=== PATIENT | male | born 1980 | race Caucasian/White ===

== ENCOUNTER 2025-03-02 11:24 | Inpatient (IN) | payer MEDICAID ==
[2025-03-02] VITALS (33 sets, daily range): BP systolic 133–159; BP diastolic 68–119; PULSE 77–91; RESP 17–26; TEMP 36.3–36.6; O2SAT 92–98
[~2025-03-02] VITALS: Ht 162.6 cm; Wt 200.9 kg
[2025-03-02] MEDS: NITROGLYCERIN 0.4MG/HR PATCH TOP ONE (12:00)
[2025-03-02] MEDS ORDERED: HYDRALAZINE 20MG/ML VIAL IV ONE (12:00)
[2025-03-02] MEDS ORDERED: CLONIDINE 0.3MG TABLET PO ONE (12:00)
[2025-03-02 12:19] LABS: UREA NITROGEN BLOOD 47 mg/dL (9-23)
[2025-03-02 12:20] LABS: TROPONIN I HIGH SENSITIVITY 53 ng/L (3.0-53)
[2025-03-02 12:33] LABS: CREATININE 6.1 mg/dL (0.6-1.3)
[2025-03-02] MEDS ORDERED: ALBUTEROL (0.5%) 2.5MG/0.5ML NEB HHN ONE (12:45)
[2025-03-02] MEDS ORDERED: SODIUM BICARBONATE 8.4% 50MEQ/50ML SYR IV ONE (12:45)
[2025-03-02] MEDS: SODIUM BICARBONATE 8.4% 50MEQ/50ML SYR IV NR ×2 (13:05→23:42)
[2025-03-02] MEDS: FUROSEMIDE 40MG/4ML VIAL IVP SCH ×3 (13:05→21:15)
[2025-03-02] MEDS: SODIUM CHLORIDE 0.9% 1,000 ML IV ONE (13:06)
[2025-03-02] MEDS: HYDRALAZINE 20MG/ML VIAL IV NR (13:07)
[2025-03-02] MEDS: CLONIDINE 0.1MG TABLET PO NR (13:07)
[2025-03-02] MEDS: ALBUTEROL (0.5%) 2.5MG/0.5ML NEB HHN NR (13:11)
[2025-03-02] MEDS: CALCIUM GLUCONATE 100MG/ML 10ML VIAL IV ONE (13:25)
[2025-03-02] MEDS ORDERED: ROCURONIUM BROMIDE 10MG/ML VIAL 5ML IV ONE (14:20)
[2025-03-02] MEDS ORDERED: ETOMIDATE 2MG/ML 10ML VIAL IV ONE (14:20)
[2025-03-02 15:00] LABS: BASOPHILS % 0.3 % (0.0-2.0); EOSINOPHILS % 0.3 % (0.0-5.0); HEMATOCRIT. 35.5 % (42.0-52.0); HEMOGLOBIN. 10.6 g/dL (14.0-18.0); LYMPHOCYTES % 7.9 % (20.0-50.0); MEAN PLATELET VOLUME 7.2 fl (7.4-10.4); MONOCYTES % 8.0 % (2.0-8.0); NEUTROPHILS % 83.5 % (40.0-76.0); PLATELET 337 x1000/uL (130-400); RED BLOOD CELL COUNT 3.91 mill/uL (4.7-6.1); RED CELL DISTRIBUTION WIDTH 16.4 % (11.6-14.6)
[2025-03-02 15:04] LABS: BG BASE EXCESS -7.7 mmol/L (-2.0-3.0); BG CARBOXYHEMOGLOBIN 0.3 % (0.5-1.5); BG DEOXYHEMOGLOBIN 3.9 % (0.0-5.0); BG FRACTION INSPIRED OXYGEN 100; BG HCO3 ACT 21.6 mmol/L (21.0-28.0); BG METHEMOGLOBIN 0.3 % (0.5-1.5); BG OXYGEN SATURATION 96.1 % (94.0-98.0); BG OXYHEMOGLOBIN 95.5 % (94.0-98.0); BG PCO2 62.9 mmHg (35.0-48.0); BG PH 7.153 (7.350-7.450); BG PO2 104.1 mmHg (83.0-108.0); BG SAMPLE SITE RIGHT BRACHIAL; BG TOTAL HEMOGLOBIN 11.6 g/dL (13.5-17.5); BG TOTAL RESPIRATORY RATE 24 b/min; BG VENT MODE MASK - BIPAP; BG VENT RATE 14.0 set
[2025-03-02] MEDS: ETOMIDATE 2MG/ML 10ML VIAL IV ONE (15:24)
[2025-03-02] MEDS: ROCURONIUM BROMIDE 10MG/ML VIAL 5ML IV ONE (15:25)
[2025-03-02] MEDS ORDERED: HEPARIN 25,000 UNITS PREMIX 250 ML IV SCH (15:45)
[2025-03-02] MEDS: PROPOFOL 10MG/ML 100ML 100 ML IV SCH (15:58)
[2025-03-02] MEDS: ONDANSETRON HCL 4MG/2ML INJ IV ONE (16:52)
[2025-03-02] MEDS: MORPHINE SULFATE 4 MG/ML INJ (FOR IV/IM USE) IV ONE (16:53)
[2025-03-02] MEDS ORDERED: DEXTROSE 50% WATER 50ML SYRINGE IV PRN (17:00)
[2025-03-02 17:05] LABS: UREA NITROGEN BLOOD 51 mg/dL (9-23)
[2025-03-02 17:07] LABS: PHOSPHORUS 7.8 mg/dL (2.5-4.9)
[2025-03-02 17:14] LABS: CLARITY URINE TURBID (CLEAR); COLOR URINE YELLOW (YELLOW); GLUCOSE URINE 1+ (NEGATIVE); KETONES URINE TRACE (NEGATIVE); LEUKOCYTE ESTERASE URINE NEGATIVE (NEGATIVE); NITRITE URINE NEGATIVE (NEGATIVE); OCCULT BLOOD URINE TRACE (NEGATIVE); PH URINE 5.0 (4.5-8.0); PROTEIN URINE 4+ (NEGATIVE); SPECIFIC GRAVITY URINE 1.022 (1.005-1.030); UROBILINOGEN URINE 0.2 E.U./dL (0.2-1.0)
[2025-03-02 17:26] LABS: BACTERIA URINE 1+; SQUAMOUS EPITHELIAL CELL URINE RARE /lpf (RARE/1+); WBC URINE 0-2 /hpf (0-2)
[2025-03-02 17:26] LABS: CREATININE 6.1 mg/dL (0.6-1.3)
[2025-03-02 17:27] LABS: AMORPHOUS SEDIMENT URINE 1+ /lpf
[2025-03-02] MEDS ORDERED: FUROSEMIDE 40MG/4ML VIAL IVP ONE (17:30)
[2025-03-02 17:31] LABS: *AMPHETAMINES SCREEN URINE NEGATIVE (NEGATIVE); *BARBITURATES SCREEN URINE NEGATIVE (NEGATIVE); *BENZODIAZEPINES SCREEN URINE PRESUMPTIVE POSITIVE (NEGATIVE); *COCAINE SCREEN URINE NEGATIVE (NEGATIVE); CANNABINOID URINE SCREEN NEGATIVE (NEGATIVE); ECSTASY MDMA SCREEN URINE NEGATIVE (NEGATIVE); METHADONE URINE SCREEN NEGATIVE (NEGATIVE); OPIATES URINE SCREEN NEGATIVE (NEGATIVE); PHENCYCLIDINE URINE SCREEN NEGATIVE (NEGATIVE)
[2025-03-02] MEDS: SODIUM ZIRCONIUM CYCLOSILICATE 10GM/PACKET NG SCH (17:42)
[2025-03-02] MEDS: METHYLPREDNISOLONE SOD SUCC 125MG/2ML (ACT-O-VIAL) IV SCH (17:42)
[2025-03-02] MEDS: PANTOPRAZOLE SODIUM 40 MG/VIAL IV SCH (17:43)
[2025-03-02] MEDS: BLOOD SUGAR DIAGNOSTIC STRIP TEST SCH (17:43)
[2025-03-02 17:56] LABS: BG BASE EXCESS -6.5 mmol/L (-2.0-3.0); BG CARBOXYHEMOGLOBIN 0.2 % (0.5-1.5); BG DEOXYHEMOGLOBIN 3.7 % (0.0-5.0); BG FRACTION INSPIRED OXYGEN 100; BG HCO3 ACT 19.8 mmol/L (21.0-28.0); BG METHEMOGLOBIN 0.3 % (0.5-1.5); BG OXYGEN SATURATION 96.3 % (94.0-98.0); BG OXYHEMOGLOBIN 95.8 % (94.0-98.0); BG PCO2 42.7 mmHg (35.0-48.0); BG PEEP (cmH2O) 5.0 cmH2O; BG PH 7.284 (7.350-7.450); BG PO2 88.9 mmHg (83.0-108.0); BG SAMPLE SITE LEFT RADIAL; BG TIDAL VOLUME(mL) 500.0 mL; BG TOTAL HEMOGLOBIN 11.5 g/dL (13.5-17.5); BG TOTAL RESPIRATORY RATE 20 b/min; BG VENT MODE VENT - AC; BG VENT RATE 20.0 set
[2025-03-02] MEDS: INSULIN REGULAR (HUMULIN R) 1000UNITS/10ML VIAL IV NR ×2 (17:59→23:43)
[2025-03-02] MEDS: DEXTROSE 50% WATER 50ML SYRINGE IV NR ×2 (18:01→23:43)
[2025-03-02] MEDS: CALCIUM GLUCONATE 100MG/ML 10ML VIAL IV NR (18:02)
[2025-03-02] MEDS: INSULIN LISPRO 100 UNITS/ML SUBCUT SCH (18:03)
[2025-03-02] MEDS: CALCIUM ACETATE 667MG CAPSULE PO SCH (18:05)
[2025-03-02] MEDS ORDERED: HYDRALAZINE 20MG/ML VIAL IV PRN (18:15)
[2025-03-02] MEDS: IPRATROPIUM/ALBUTEROL 0.5-3(2.5)MG/3ML NEB HHN SCH (20:42)
[2025-03-02] MEDS: AZITHROMYCIN 500MG/250ML 250 ML IV SCH (20:44)
[2025-03-02] MEDS: PIPERACILLIN/TAZO 3.375G/50ML 50 ML IV SCH (20:45)
[2025-03-02] MEDS: CLINDAMYCIN 600MG PREMIX 50 ML IV SCH (21:54)
[2025-03-02 22:48] LABS: UREA NITROGEN BLOOD 45 mg/dL (9-23)
[2025-03-02 22:50] LABS: PHOSPHORUS 7.3 mg/dL (2.5-4.9)
[2025-03-02] MEDS: METHYLPREDNISOLONE SOD SUCC 40MG/ML (ACT-O-VIAL) IV SCH (23:05)
[2025-03-02] MEDS: PROPOFOL 10MG/ML 100ML 100 ML IV PRN (23:06)
[2025-03-02 23:10] LABS: CREATININE 6.2 mg/dL (0.6-1.3); TROPONIN I HIGH SENSITIVITY 181 ng/L (3.0-53)
[2025-03-02] MEDS: SODIUM ZIRCONIUM CYCLOSILICATE 10GM/PACKET PO NR (23:42)
[2025-03-03] VITALS (112 sets, daily range): BP systolic 67–151; BP diastolic 51–127; PULSE 65–95; RESP 15–30; TEMP 36.33624–36.8; O2SAT 85–100
[2025-03-03] MEDS: CALCIUM GLUCONATE 1GM PREMIX 50 ML IV NR (00:11)
[2025-03-03] MEDS ORDERED: NOREPINEPHRINE 8MG/250ML PMX 250 ML IV PRN (02:15)
[2025-03-03] MEDS ORDERED: SPIR25TA6 PO (03:31)
[2025-03-03] MEDS ORDERED: EZET10TA81 PO (03:31)
[2025-03-03] MEDS ORDERED: ATOR40TA70 MT (03:31)
[2025-03-03] MEDS ORDERED: SODI650T PO (03:31)
[2025-03-03] MEDS ORDERED: ASPI-1406 PO (03:31)
[2025-03-03] MEDS ORDERED: AMLO5TAB88 PO (03:31)
[2025-03-03] MEDS: FUROSEMIDE 40MG/4ML VIAL IVP SCH (07:02)
[2025-03-03 07:11] LABS: HEMATOCRIT. 33.8 % (42.0-52.0); HEMOGLOBIN. 10.5 g/dL (14.0-18.0); MEAN PLATELET VOLUME 7.6 fl (7.4-10.4); PLATELET 321 x1000/uL (130-400); RED BLOOD CELL COUNT 3.88 mill/uL (4.7-6.1); RED CELL DISTRIBUTION WIDTH 16.2 % (11.6-14.6); TRIGLYCERIDE 155.0 mg/dL (0-150); UREA NITROGEN BLOOD 64.0 mg/dL (9-23)
[2025-03-03 07:12] LABS: LDL CHOLESTEROL 48.0 mg/dL (5-100)
[2025-03-03 07:14] LABS: T4 FREE 0.94 ng/dL (0.89-1.76)
[2025-03-03 07:32] LABS: CREATININE 6.4 mg/dL (0.6-1.3)
[2025-03-03] MEDS ORDERED: ALBUTEROL (0.083%) 2.5MG/3ML NEB HHN NR (07:45)
[2025-03-03 07:51] LABS: TROPONIN I HIGH SENSITIVITY 247 ng/L (3.0-53)
[2025-03-03] MEDS ORDERED: DEXTROSE 50% WATER 50ML SYRINGE IV PRN (08:00)
[2025-03-03] MEDS: IPRATROPIUM/ALBUTEROL 0.5-3(2.5)MG/3ML NEB HHN PRN (08:18)
[2025-03-03] MEDS: INSULIN REGULAR (HUMULIN R) 1000UNITS/10ML VIAL IV NR (08:20)
[2025-03-03] MEDS: DEXTROSE 50% WATER 50ML SYRINGE IV NR (08:20)
[2025-03-03] MEDS: FUROSEMIDE 20MG/2ML VIAL IVP ONE (08:26)
[2025-03-03] MEDS: CALCIUM GLUCONATE 100MG/ML 10ML VIAL IV NR (08:38)
[2025-03-03] MEDS: INSULIN LISPRO 100 UNITS/ML SUBCUT SCH (09:00)
[2025-03-03 10:05] LABS: HEMATOCRIT. 33.7 % (42.0-52.0); HEMOGLOBIN. 10.3 g/dL (14.0-18.0); MEAN PLATELET VOLUME 7.5 fl (7.4-10.4); PLATELET 312 x1000/uL (130-400); RED BLOOD CELL COUNT 3.82 mill/uL (4.7-6.1); RED CELL DISTRIBUTION WIDTH 16.1 % (11.6-14.6)
[2025-03-03 10:30] LABS: INR 1.2
[2025-03-03 10:37] LABS: UREA NITROGEN BLOOD 57 mg/dL (9-23)
[2025-03-03] MEDS ORDERED: LIDOCAINE HCL 1% 10 MG/ML 10ML VIAL ONE (11:01)
[2025-03-03 11:04] LABS: CREATININE 6.4 mg/dL (0.6-1.3)
[2025-03-03 11:06] LABS: BG BASE EXCESS -10.0 mmol/L (-2.0-3.0); BG CARBOXYHEMOGLOBIN 0.5 % (0.5-1.5); BG DEOXYHEMOGLOBIN 7.7 % (0.0-5.0); BG FRACTION INSPIRED OXYGEN 100; BG HCO3 ACT 16.9 mmol/L (21.0-28.0); BG METHEMOGLOBIN 0.0 % (0.5-1.5); BG OXYGEN SATURATION 92.3 % (94.0-98.0); BG OXYHEMOGLOBIN 91.8 % (94.0-98.0); BG PCO2 40.8 mmHg (35.0-48.0); BG PEEP (cmH2O) 10.0 cmH2O; BG PH 7.235 (7.350-7.450); BG PO2 71.9 mmHg (83.0-108.0); BG SAMPLE SITE LEFT RADIAL; BG TIDAL VOLUME(mL) 500.0 mL; BG TOTAL HEMOGLOBIN 11.4 g/dL (13.5-17.5); BG VENT MODE VENT - AC; BG VENT RATE 20.0 set
[2025-03-03 11:12] LABS: PHOSPHORUS 8.0 mg/dL (2.5-4.9)
[2025-03-03] MEDS: FENTANYL CITRATE/PF 2,500 MCG in SODIUM CHLORIDE 0.9% 200 ML IV PRN (12:00)
[2025-03-03] MEDS: BLOOD SUGAR DIAGNOSTIC STRIP TEST SCH (12:01)
[2025-03-03] MEDS: INSULIN GLARGINE 100 UNITS/ML SUBCUT NR (12:58)
[2025-03-03] MEDS: ENOXAPARIN 100MG/ML SYR SUBCUT SCH (14:00)
[2025-03-03] MEDS ORDERED: METHYLPREDNISOLONE SOD SUCC 125MG/2ML (ACT-O-VIAL) IV SCH (14:00)
[2025-03-03 14:38] LABS: BAND% 6.0 % (1.0-6.0); LYMPHOCYTES % MANUAL 5.0 % (20.0-50.0); MONOCYTES % MANUAL 5.0 % (2.0-8.0); NEUTROPHILS % MANUAL 84.0 % (45.0-75.0); PLATELET ESTIMATE NORMAL
[2025-03-03 14:52] LABS: BAND% 3.0 % (1.0-6.0); LYMPHOCYTES % MANUAL 4.0 % (20.0-50.0); MONOCYTES % MANUAL 2.0 % (2.0-8.0); NEUTROPHILS % MANUAL 91.0 % (45.0-75.0); PLATELET ESTIMATE NORMAL
[2025-03-03 18:03] LABS: UREA NITROGEN BLOOD 45.0 mg/dL (9-23)
[2025-03-03 18:05] LABS: CREATININE 5.1 mg/dL (0.6-1.3)
[2025-03-03 18:42] LABS: HEPATITIS A AB IGM NEGATIVE (Negative); HEPATITIS B CORE AB IGM NEGATIVE (Negative)
[2025-03-03 18:43] LABS: HEPATITIS C AB NON REACTIVE (Neg) (Negative)
[2025-03-03 19:09] LABS: BG BASE EXCESS -4.8 mmol/L (-2.0-3.0); BG CARBOXYHEMOGLOBIN 0.2 % (0.5-1.5); BG DEOXYHEMOGLOBIN 2.9 % (0.0-5.0); BG FRACTION INSPIRED OXYGEN 100; BG HCO3 ACT 21.7 mmol/L (21.0-28.0); BG METHEMOGLOBIN 0.3 % (0.5-1.5); BG OXYGEN SATURATION 97.1 % (94.0-98.0); BG OXYHEMOGLOBIN 96.6 % (94.0-98.0); BG PCO2 45.5 mmHg (35.0-48.0); BG PEEP (cmH2O) 12.0 cmH2O; BG PH 7.296 (7.350-7.450); BG PO2 101.6 mmHg (83.0-108.0); BG SAMPLE SITE LEFT RADIAL; BG TIDAL VOLUME(mL) 500.0 mL; BG TOTAL HEMOGLOBIN 13.2 g/dL (13.5-17.5); BG VENT MODE VENT - AC; BG VENT RATE 20.0 set
[2025-03-04] VITALS (107 sets, daily range): BP systolic 88–185; BP diastolic 46–103; PULSE 71–96; RESP 14–28; TEMP 36.6–36.9; O2SAT 91–100
[2025-03-04] MEDS: PROPOFOL 10MG/ML 100ML 100 ML IV PRN ×2 (00:12→03:00)
[2025-03-04 06:19] LABS: HEMATOCRIT. 29.8 % (42.0-52.0); HEMOGLOBIN. 9.1 g/dL (14.0-18.0); MEAN PLATELET VOLUME 7.9 fl (7.4-10.4); PLATELET 320 x1000/uL (130-400); RED BLOOD CELL COUNT 3.37 mill/uL (4.7-6.1); RED CELL DISTRIBUTION WIDTH 15.8 % (11.6-14.6)
[2025-03-04 06:46] LABS: UREA NITROGEN BLOOD 55 mg/dL (9-23)
[2025-03-04 06:47] LABS: ASPARTATE AMINOTRANSFERASE 216 IU/L (<34)
[2025-03-04 06:48] LABS: BILIRUBIN DIRECT 0.2 mg/dL (<=3.0); BILIRUBIN TOTAL 0.3 mg/dL (0.1-1.0); PROTEIN TOTAL 5.9 g/dL (6.0-8.3)
[2025-03-04 06:59] LABS: CREATININE 5.8 mg/dL (0.6-1.3); PHOSPHORUS 8.0 mg/dL (2.5-4.9)
[2025-03-04 07:16] LABS: BAND% 7.0 % (1.0-6.0); LYMPHOCYTES % MANUAL 1.0 % (20.0-50.0); MONOCYTES % MANUAL 5.0 % (2.0-8.0); NEUTROPHILS % MANUAL 87.0 % (45.0-75.0)
[2025-03-04 07:20] LABS: PLATELET ESTIMATE NORMAL
[2025-03-04] MEDS: INSULIN GLARGINE 100 UNITS/ML SUBCUT SCH (09:07)
[2025-03-04] MEDS: INSULIN LISPRO 100 UNITS/ML SUBCUT NR (09:15)
[2025-03-04 09:27] LABS: BG BASE EXCESS -11.1 mmol/L (-2.0-3.0); BG CARBOXYHEMOGLOBIN 0.3 % (0.5-1.5); BG DEOXYHEMOGLOBIN 9.3 % (0.0-5.0); BG FRACTION INSPIRED OXYGEN 100; BG HCO3 ACT 15.7 mmol/L (21.0-28.0); BG METHEMOGLOBIN 0.3 % (0.5-1.5); BG OXYGEN SATURATION 90.6 % (94.0-98.0); BG OXYHEMOGLOBIN 90.1 % (94.0-98.0); BG PCO2 38.9 mmHg (35.0-48.0); BG PEEP (cmH2O) 12.0 cmH2O; BG PH 7.225 (7.350-7.450); BG PO2 73.5 mmHg (83.0-108.0); BG SAMPLE SITE LEFT BRACHIAL; BG TIDAL VOLUME(mL) 500.0 mL; BG TOTAL HEMOGLOBIN 11.3 g/dL (13.5-17.5); BG VENT MODE VENT - AC; BG VENT RATE 20.0 set
[2025-03-04] MEDS ORDERED: NOREPINEPHRINE 8MG/250ML PMX 250 ML IV PRN (11:00)
[2025-03-04] MEDS: INSULIN REGULAR (HUMULIN R) 1000UNITS/10ML VIAL IV SCH (11:25)
[2025-03-04] MEDS ORDERED: BLOOD SUGAR DIAGNOSTIC STRIP TEST PRN (13:15)
[2025-03-04] MEDS ORDERED: POTASSIUM CHLORIDE 40 MEQ in SODIUM CHLORIDE 0.9% 230 ML IV PRN (13:15)
[2025-03-04] MEDS ORDERED: MAGNESIUM 2 G PREMIX 50 ML IV PRN (13:15)
[2025-03-04] MEDS ORDERED: SODIUM PHOSPHATE 15 MMOL in SODIUM CHLORIDE 0.9% 245 ML IV PRN (13:15)
[2025-03-04] MEDS ORDERED: DEXTROSE 50% WATER 50ML SYRINGE IV PRN (13:15)
[2025-03-04] MEDS: BLOOD SUGAR DIAGNOSTIC STRIP TEST SCH (13:29)
[2025-03-04] MEDS: ENOXAPARIN 150MG/ML SYR SUBCUT SCH (14:20)
[2025-03-04] MEDS: INSULIN REGULAR 100U/100ML PMX 100 ML IV PRN (14:22)
[2025-03-04 15:10] LABS: *CREATININE RANDOM URINE 126.3 mg/dL (Not Estab.)
[2025-03-04 16:49] LABS: BG BASE EXCESS -9.8 mmol/L (-2.0-3.0); BG CARBOXYHEMOGLOBIN 0.4 % (0.5-1.5); BG DEOXYHEMOGLOBIN 6.3 % (0.0-5.0); BG FRACTION INSPIRED OXYGEN 80; BG HCO3 ACT 15.6 mmol/L (21.0-28.0); BG METHEMOGLOBIN 0.1 % (0.5-1.5); BG OXYGEN SATURATION 93.7 % (94.0-98.0); BG OXYHEMOGLOBIN 93.2 % (94.0-98.0); BG PCO2 32.9 mmHg (35.0-48.0); BG PH 7.295 (7.350-7.450); BG PO2 78.8 mmHg (83.0-108.0); BG SAMPLE SITE LEFT BRACHIAL; BG TIDAL VOLUME(mL) 500.0 mL; BG TOTAL HEMOGLOBIN 10.5 g/dL (13.5-17.5); BG VENT MODE VENT - AC; BG VENT RATE 24.0 set
[2025-03-04] MEDS ORDERED: INSULIN GLARGINE 100 UNITS/ML SUBCUT SCH (18:45)
[2025-03-04 19:14] LABS: CREATININE 4.6 mg/dL (0.6-1.3)
[2025-03-04 19:15] LABS: UREA NITROGEN BLOOD 44 mg/dL (9-23)
[2025-03-04 19:17] LABS: PHOSPHORUS 5.0 mg/dL (2.5-4.9)
[2025-03-04] MEDS: KCL 20MEQ/100ML PREMIX 100 ML IV PRN (19:39)
[2025-03-04] MEDS: INSULIN LISPRO 100 UNITS/ML SUBCUT SCH (22:00)
[2025-03-04 22:58] LABS: UREA NITROGEN BLOOD 40 mg/dL (9-23)
[2025-03-04 23:00] LABS: PHOSPHORUS 5.6 mg/dL (2.5-4.9)
[2025-03-04 23:05] LABS: CREATININE 5.0 mg/dL (0.6-1.3)
[2025-03-05] VITALS (91 sets, daily range): BP systolic 89–154; BP diastolic 57–81; PULSE 75–100; RESP 3–35; TEMP 36.8–37.2; O2SAT 90–98
[2025-03-05 04:04] LABS: UREA NITROGEN BLOOD 48.0 mg/dL (9-23)
[2025-03-05 04:11] LABS: CREATININE 5.2 mg/dL (0.6-1.3)
[2025-03-05 04:36] LABS: PHOSPHORUS 6.2 mg/dL (2.5-4.9)
[2025-03-05 06:53] LABS: BASOPHILS % 0.2 % (0.0-2.0); EOSINOPHILS % 0.1 % (0.0-5.0); HEMATOCRIT. 30.1 % (42.0-52.0); HEMOGLOBIN. 9.7 g/dL (14.0-18.0); LYMPHOCYTES % 14.5 % (20.0-50.0); MEAN PLATELET VOLUME 7.5 fl (7.4-10.4); MONOCYTES % 12.7 % (2.0-8.0); NEUTROPHILS % 72.5 % (40.0-76.0); PLATELET 347 x1000/uL (130-400); RED BLOOD CELL COUNT 3.59 mill/uL (4.7-6.1); RED CELL DISTRIBUTION WIDTH 15.4 % (11.6-14.6)
[2025-03-05] MEDS: INSULIN GLARGINE 100 UNITS/ML SUBCUT NR (06:53)
[2025-03-05 07:49] LABS: UREA NITROGEN BLOOD 50.0 mg/dL (9-23)
[2025-03-05] MEDS: PROPOFOL 10MG/ML 100ML 100 ML IV PRN (08:33)
[2025-03-05 09:20] LABS: CREATININE 5.3 mg/dL (0.6-1.3)
[2025-03-05 09:30] LABS: BG BASE EXCESS -3.1 mmol/L (-2.0-3.0); BG CARBOXYHEMOGLOBIN 0.3 % (0.5-1.5); BG DEOXYHEMOGLOBIN 5.3 % (0.0-5.0); BG FRACTION INSPIRED OXYGEN 90; BG HCO3 ACT 22.3 mmol/L (21.0-28.0); BG METHEMOGLOBIN 0.3 % (0.5-1.5); BG OXYGEN SATURATION 94.7 % (94.0-98.0); BG OXYHEMOGLOBIN 94.1 % (94.0-98.0); BG PCO2 41.7 mmHg (35.0-48.0); BG PEEP (cmH2O) 12.0 cmH2O; BG PH 7.347 (7.350-7.450); BG PO2 85.3 mmHg (83.0-108.0); BG SAMPLE SITE RIGHT RADIAL; BG TIDAL VOLUME(mL) 500.0 mL; BG TOTAL HEMOGLOBIN 10.5 g/dL (13.5-17.5); BG VENT MODE VENT - AC; BG VENT RATE 24.0 set
[2025-03-05 11:52] LABS: UREA NITROGEN BLOOD 50.0 mg/dL (9-23)
[2025-03-05 12:07] LABS: CREATININE 5.5 mg/dL (0.6-1.3)
[2025-03-05] MEDS ORDERED: NON FORMULARY MED XX SCH (13:30)
[2025-03-05] MEDS: IRON SUCROSE COMPLEX 100 MG/5 ML ML IV SCH (13:48)
[2025-03-05] MEDS ORDERED: METOCLOPRAMIDE HCL 10MG/2ML VIAL IV PRN (19:00)
[2025-03-05] MEDS: ENOXAPARIN 40MG/0.4ML SYR SUBCUT SCH (21:18)
[2025-03-05] MEDS: INSULIN GLARGINE 100 UNITS/ML SUBCUT SCH (21:20)
[2025-03-06] VITALS (105 sets, daily range): BP systolic 96–162; BP diastolic 58–73; PULSE 66–99; RESP 14–28; TEMP 36.6–38.6; O2SAT 64–96
[2025-03-06] MEDS: INSULIN LISPRO 100 UNITS/ML SUBCUT SCH ×3 (02:31→17:55)
[2025-03-06 08:11] LABS: BASOPHILS % 0.3 % (0.0-2.0); EOSINOPHILS % 1.3 % (0.0-5.0); HEMATOCRIT. 33.0 % (42.0-52.0); HEMOGLOBIN. 10.3 g/dL (14.0-18.0); LYMPHOCYTES % 9.2 % (20.0-50.0); MEAN PLATELET VOLUME 7.7 fl (7.4-10.4); MONOCYTES % 10.5 % (2.0-8.0); NEUTROPHILS % 78.7 % (40.0-76.0); PLATELET 300 x1000/uL (130-400); RED BLOOD CELL COUNT 3.78 mill/uL (4.7-6.1); RED CELL DISTRIBUTION WIDTH 15.7 % (11.6-14.6)
[2025-03-06 08:29] LABS: FOLIC ACID (FOLATE) SERUM > 20.00 ng/mL (>5.38); VITAMIN B12 SERUM 975 pg/mL (211-911)
[2025-03-06] MEDS: PROPOFOL 10MG/ML 100ML 100 ML IV PRN (09:28)
[2025-03-06 10:24] LABS: BG BASE EXCESS -0.4 mmol/L (-2.0-3.0); BG CARBOXYHEMOGLOBIN 0.3 % (0.5-1.5); BG DEOXYHEMOGLOBIN 9.1 % (0.0-5.0); BG FRACTION INSPIRED OXYGEN 75; BG HCO3 ACT 24.6 mmol/L (21.0-28.0); BG METHEMOGLOBIN 0.3 % (0.5-1.5); BG OXYGEN SATURATION 90.8 % (94.0-98.0); BG OXYHEMOGLOBIN 90.3 % (94.0-98.0); BG PCO2 41.8 mmHg (35.0-48.0); BG PEEP (cmH2O) 12.0 cmH2O; BG PH 7.388 (7.350-7.450); BG PO2 65.8 mmHg (83.0-108.0); BG SAMPLE SITE RIGHT RADIAL; BG TIDAL VOLUME(mL) 550.0 mL; BG TOTAL HEMOGLOBIN 8.5 g/dL (13.5-17.5); BG VENT MODE VENT - AC; BG VENT RATE 24.0 set
[2025-03-06 22:59] LABS: CREATININE 4.7 mg/dL (0.6-1.3)
[2025-03-06 23:00] LABS: TRIGLYCERIDE 192 mg/dL (0-150); UREA NITROGEN BLOOD 36 mg/dL (9-23)
[2025-03-06 23:01] LABS: ASPARTATE AMINOTRANSFERASE 50 IU/L (<34); BILIRUBIN DIRECT 0.2 mg/dL (<=3.0)
[2025-03-06 23:02] LABS: BILIRUBIN TOTAL 0.3 mg/dL (0.1-1.0); PHOSPHORUS 5.3 mg/dL (2.5-4.9); PROTEIN TOTAL 5.9 g/dL (6.0-8.3)
[2025-03-06 23:13] LABS: BG BASE EXCESS 0.9 mmol/L (-2.0-3.0); BG CARBOXYHEMOGLOBIN 0.3 % (0.5-1.5); BG DEOXYHEMOGLOBIN 11.3 % (0.0-5.0); BG FRACTION INSPIRED OXYGEN 100; BG HCO3 ACT 26.2 mmol/L (21.0-28.0); BG METHEMOGLOBIN 0.3 % (0.5-1.5); BG OXYGEN SATURATION 88.6 % (94.0-98.0); BG OXYHEMOGLOBIN 88.1 % (94.0-98.0); BG PCO2 45.1 mmHg (35.0-48.0); BG PEEP (cmH2O) 12.0 cmH2O; BG PH 7.382 (7.350-7.450); BG PO2 57.6 mmHg (83.0-108.0); BG SAMPLE SITE LEFT BRACHIAL; BG TIDAL VOLUME(mL) 475.0 mL; BG TOTAL HEMOGLOBIN 10.3 g/dL (13.5-17.5); BG VENT MODE VENT - AC; BG VENT RATE 24.0 set
[2025-03-07] VITALS (111 sets, daily range): BP systolic 93–138; BP diastolic 47–113; PULSE 66–98; RESP 11–31; TEMP 36.7–37.503; O2SAT 80–99
[2025-03-07] MEDS: MIDAZOLAM 100MG/100ML PMX 100 ML IV PRN (00:12)
[2025-03-07] MEDS: FENTANYL 2500MCG/250ML PMX 250 ML IV PRN (00:13)
[2025-03-07 02:21] LABS: BG BASE EXCESS 0.4 mmol/L (-2.0-3.0); BG CARBOXYHEMOGLOBIN 0.2 % (0.5-1.5); BG DEOXYHEMOGLOBIN 13.5 % (0.0-5.0); BG FRACTION INSPIRED OXYGEN 100; BG HCO3 ACT 27.5 mmol/L (21.0-28.0); BG METHEMOGLOBIN 0.3 % (0.5-1.5); BG OXYGEN SATURATION 86.4 % (94.0-98.0); BG OXYHEMOGLOBIN 86.0 % (94.0-98.0); BG PCO2 55.9 mmHg (35.0-48.0); BG PEEP (cmH2O) 12.0 cmH2O; BG PH 7.310 (7.350-7.450); BG PO2 58.3 mmHg (83.0-108.0); BG SAMPLE SITE RIGHT RADIAL; BG TIDAL VOLUME(mL) 450.0 mL; BG TOTAL HEMOGLOBIN 11.8 g/dL (13.5-17.5); BG VENT RATE 24.0 set
[2025-03-07 07:26] LABS: HEMATOCRIT. 31.4 % (42.0-52.0); HEMOGLOBIN. 9.9 g/dL (14.0-18.0); MEAN PLATELET VOLUME 7.4 fl (7.4-10.4); PLATELET 283 x1000/uL (130-400); RED BLOOD CELL COUNT 3.63 mill/uL (4.7-6.1); RED CELL DISTRIBUTION WIDTH 16.0 % (11.6-14.6)
[2025-03-07 07:45] LABS: CREATININE 4.7 mg/dL (0.6-1.3); TRIGLYCERIDE 197.0 mg/dL (0-150); UREA NITROGEN BLOOD 46.0 mg/dL (9-23)
[2025-03-07 08:14] LABS: BG BASE EXCESS -1.8 mmol/L (-2.0-3.0); BG CARBOXYHEMOGLOBIN 0.0 % (0.5-1.5); BG DEOXYHEMOGLOBIN 16.8 % (0.0-5.0); BG FRACTION INSPIRED OXYGEN 100; BG HCO3 ACT 25.1 mmol/L (21.0-28.0); BG METHEMOGLOBIN 0.3 % (0.5-1.5); BG OXYGEN SATURATION 83.1 % (94.0-98.0); BG OXYHEMOGLOBIN 82.9 % (94.0-98.0); BG PCO2 52.2 mmHg (35.0-48.0); BG PEEP (cmH2O) 16.0 cmH2O; BG PH 7.300 (7.350-7.450); BG PIP 25.0 cmH2O; BG PO2 53.7 mmHg (83.0-108.0); BG SAMPLE SITE RIGHT BRACHIAL; BG TOTAL HEMOGLOBIN 11.4 g/dL (13.5-17.5); BG VENT MODE VENT - P/C; BG VENT RATE 24.0 set
[2025-03-07 10:32] LABS: BAND% 11.0 % (1.0-6.0); EOSINOPHILS % MANUAL 2.0 % (0.0-5.0); LYMPHOCYTES % MANUAL 3.0 % (20.0-50.0); MONOCYTES % MANUAL 9.0 % (2.0-8.0); NEUTROPHILS % MANUAL 75.0 % (45.0-75.0)
[2025-03-07 10:33] LABS: PLATELET ESTIMATE NORMAL
[2025-03-07] MEDS: PROPOFOL 10MG/ML 100ML 100 ML IV PRN (11:37)
[2025-03-07] MEDS ORDERED: HEPARIN 25,000 UNITS PREMIX 250 ML IV SCH (12:15)
[2025-03-07] MEDS: HEPARIN 80 UNITS/KG BOLUS IV SCH (12:55)
[2025-03-07] MEDS ORDERED: VANCOMYCIN 1GM/200ML PMX (BAXTER) IV SCH (13:00)
[2025-03-07] MEDS: HEPARIN 25,000 UNITS PREMIX 250 ML IV SCH (13:06)
[2025-03-07] MEDS ORDERED: HEPARIN BOLUS PRN aPTT 37-44 IV (18:00)
[2025-03-07] MEDS: LINEZOLID 600 MG IV SCH (18:51)
[2025-03-07] MEDS ORDERED: DIATR MEGLU/DIATRIZOATE SOLN 30ML PO ONE (20:15)
[2025-03-07] MEDS ORDERED: DIATR MEGLU/DIATRIZOATE SOLN 30ML PO NR (20:15)
[2025-03-07] MEDS: METOCLOPRAMIDE HCL 10MG/2ML VIAL IV SCH (21:47)
[2025-03-08] VITALS (99 sets, daily range): BP systolic 87–162; BP diastolic 50–111; PULSE 74–98; RESP 0–32; TEMP 36.7–37.8; O2SAT 77–99
[2025-03-08] MEDS: METOCLOPRAMIDE HCL 10MG/2ML VIAL IV SCH (00:09)
[2025-03-08] MEDS ORDERED: DEXTROSE 50% WATER 50ML SYRINGE IV ONE (05:35)
[2025-03-08] MEDS: DEXTROSE 50% WATER 50ML SYRINGE IV PRN (05:53)
[2025-03-08] MEDS: IPRATROPIUM/ALBUTEROL 0.5-3(2.5)MG/3ML NEB HHN NR (08:14)
[2025-03-08 08:31] LABS: CREATININE 4.8 mg/dL (0.6-1.3)
[2025-03-08 08:32] LABS: TRIGLYCERIDE 167 mg/dL (0-150); UREA NITROGEN BLOOD 43 mg/dL (9-23)
[2025-03-08 08:34] LABS: PHOSPHORUS 6.9 mg/dL (2.5-4.9)
[2025-03-08] MEDS ORDERED: METHYLPREDNISOLONE SOD SUCC 125MG/2ML (ACT-O-VIAL) IV SCH (09:00)
[2025-03-08] MEDS: METHYLPREDNISOLONE SOD SUCC 125MG/2ML (ACT-O-VIAL) IV SCH (09:21)
[2025-03-08 09:56] LABS: BG BASE EXCESS 0.0 mmol/L (-2.0-3.0); BG CARBOXYHEMOGLOBIN 0.9 % (0.5-1.5); BG DEOXYHEMOGLOBIN 7.0 % (0.0-5.0); BG HCO3 ACT 26.7 mmol/L (21.0-28.0); BG METHEMOGLOBIN 0.1 % (0.5-1.5); BG OXYGEN SATURATION 92.9 % (94.0-98.0); BG OXYHEMOGLOBIN 92.0 % (94.0-98.0); BG PCO2 53.3 mmHg (35.0-48.0); BG PH 7.317 (7.350-7.450); BG PO2 70.4 mmHg (83.0-108.0); BG TOTAL HEMOGLOBIN 10.2 g/dL (13.5-17.5)
[2025-03-08] MEDS: HEPARIN BOLUS PRN aPTT <36 IV (10:42)
[2025-03-08] MEDS: PROPOFOL 10MG/ML 100ML 100 ML IV PRN (12:14)
[2025-03-08 13:06] LABS: HEMATOCRIT. 29.8 % (42.0-52.0); HEMOGLOBIN. 9.3 g/dL (14.0-18.0); MEAN PLATELET VOLUME 7.8 fl (7.4-10.4); PLATELET 302 x1000/uL (130-400); RED BLOOD CELL COUNT 3.43 mill/uL (4.7-6.1); RED CELL DISTRIBUTION WIDTH 15.4 % (11.6-14.6)
[2025-03-08 14:18] LABS: BAND% 9.0 % (1.0-6.0); EOSINOPHILS % MANUAL 1.0 % (0.0-5.0); LYMPHOCYTES % MANUAL 6.0 % (20.0-50.0); MONOCYTES % MANUAL 4.0 % (2.0-8.0); NEUTROPHILS % MANUAL 80.0 % (45.0-75.0); PLATELET ESTIMATE NORMAL
[2025-03-08] MEDS: IPRATROPIUM/ALBUTEROL 0.5-3(2.5)MG/3ML NEB HHN SCH (20:47)
[2025-03-08] MEDS: HEPARIN 25,000 UNITS PREMIX 250 ML IV PRN (23:40)
[2025-03-09] VITALS (97 sets, daily range): BP systolic 112–153; BP diastolic 57–90; PULSE 71–97; RESP 0–31; TEMP 36.8–37.00296; O2SAT 93–99
[2025-03-09 06:43] LABS: HEMATOCRIT. 29.6 % (42.0-52.0); HEMOGLOBIN. 9.3 g/dL (14.0-18.0); MEAN PLATELET VOLUME 8.0 fl (7.4-10.4); PLATELET 324 x1000/uL (130-400); RED BLOOD CELL COUNT 3.38 mill/uL (4.7-6.1); RED CELL DISTRIBUTION WIDTH 15.7 % (11.6-14.6)
[2025-03-09 07:03] LABS: TRIGLYCERIDE 191 mg/dL (0-150); UREA NITROGEN BLOOD 50 mg/dL (9-23)
[2025-03-09 07:28] LABS: CREATININE 5.4 mg/dL (0.6-1.3); PHOSPHORUS 9.4 mg/dL (2.5-4.9)
[2025-03-09] MEDS: CALCIUM ACETATE 667MG CAPSULE NG NR (08:48)
[2025-03-09] MEDS: SODIUM ZIRCONIUM CYCLOSILICATE 10GM/PACKET NG NR (08:49)
[2025-03-09] MEDS: INSULIN REGULAR (HUMULIN R) 1000UNITS/10ML VIAL IV NR ×2 (08:50)
[2025-03-09 09:44] LABS: BG BASE EXCESS -5.4 mmol/L (-2.0-3.0); BG CARBOXYHEMOGLOBIN 0.2 % (0.5-1.5); BG DEOXYHEMOGLOBIN 10.1 % (0.0-5.0); BG FRACTION INSPIRED OXYGEN 100; BG HCO3 ACT 22.7 mmol/L (21.0-28.0); BG METHEMOGLOBIN 0.1 % (0.5-1.5); BG OXYGEN SATURATION 89.9 % (94.0-98.0); BG OXYHEMOGLOBIN 89.6 % (94.0-98.0); BG PCO2 57.5 mmHg (35.0-48.0); BG PEEP (cmH2O) 16.0 cmH2O; BG PH 7.214 (7.350-7.450); BG PO2 68.7 mmHg (83.0-108.0); BG SAMPLE SITE RIGHT RADIAL; BG TIDAL VOLUME(mL) 450.0 mL; BG TOTAL HEMOGLOBIN 10.8 g/dL (13.5-17.5); BG VENT MODE VENT - PRVC; BG VENT RATE 24.0 set
[2025-03-09 11:35] LABS: BAND% 9.0 % (1.0-6.0); LYMPHOCYTES % MANUAL 3.0 % (20.0-50.0); MONOCYTES % MANUAL 3.0 % (2.0-8.0); NEUTROPHILS % MANUAL 85.0 % (45.0-75.0)
[2025-03-09 11:36] LABS: PLATELET ESTIMATE NORMAL
[2025-03-09 13:11] LABS: COMPLEMENT C3 172 mg/dL (82-167); COMPLEMENT C4 44 mg/dL (12-38)
[2025-03-09] MEDS ORDERED: PROPOFOL 10MG/ML 100ML 100 ML IV PRN (14:30)
[2025-03-09] MEDS: PROPOFOL 10MG/ML 100ML 100 ML IV PRN (15:00)
[2025-03-09] MEDS: BLOOD SUGAR DIAGNOSTIC STRIP TEST SCH (17:14)
[2025-03-10] VITALS (103 sets, daily range): BP systolic 124–174; BP diastolic 48–97; PULSE 65–96; RESP 12–31; TEMP 36.2–36.9; O2SAT 90–100
[2025-03-10 06:23] LABS: UREA NITROGEN BLOOD 61 mg/dL (9-23)
[2025-03-10 06:25] LABS: CREATININE 5.4 mg/dL (0.6-1.3)
[2025-03-10 06:32] LABS: PHOSPHORUS 9.9 mg/dL (2.5-4.9)
[2025-03-10 06:33] LABS: HEMATOCRIT. 29.1 % (42.0-52.0); HEMOGLOBIN. 9.0 g/dL (14.0-18.0); MEAN PLATELET VOLUME 7.9 fl (7.4-10.4); PLATELET 362 x1000/uL (130-400); RED BLOOD CELL COUNT 3.25 mill/uL (4.7-6.1); RED CELL DISTRIBUTION WIDTH 15.6 % (11.6-14.6)
[2025-03-10] MEDS: CALCIUM ACETATE 667MG CAPSULE PO SCH (08:20)
[2025-03-10 09:35] LABS: BG BASE EXCESS -6.0 mmol/L (-2.0-3.0); BG CARBOXYHEMOGLOBIN 0.1 % (0.5-1.5); BG DEOXYHEMOGLOBIN 28.9 % (0.0-5.0); BG FRACTION INSPIRED OXYGEN 70; BG HCO3 ACT 21.0 mmol/L (21.0-28.0); BG METHEMOGLOBIN 0.1 % (0.5-1.5); BG OXYGEN SATURATION 71.0 % (94.0-98.0); BG OXYHEMOGLOBIN 70.9 % (94.0-98.0); BG PCO2 48.8 mmHg (35.0-48.0); BG PEEP (cmH2O) 16.0 cmH2O; BG PH 7.252 (7.350-7.450); BG PO2 42.9 mmHg (83.0-108.0); BG SAMPLE SITE RIGHT BRACHIAL; BG TIDAL VOLUME(mL) 450.0 mL; BG TOTAL HEMOGLOBIN 9.8 g/dL (13.5-17.5); BG VENT MODE VENT - PRVC; BG VENT RATE 26.0 set
[2025-03-10 14:41] LABS: BG BASE EXCESS -4.6 mmol/L (-2.0-3.0); BG CARBOXYHEMOGLOBIN 0.3 % (0.5-1.5); BG DEOXYHEMOGLOBIN 1.7 % (0.0-5.0); BG FRACTION INSPIRED OXYGEN 100; BG HCO3 ACT 21.9 mmol/L (21.0-28.0); BG METHEMOGLOBIN 0.1 % (0.5-1.5); BG OXYGEN SATURATION 98.3 % (94.0-98.0); BG OXYHEMOGLOBIN 97.9 % (94.0-98.0); BG PCO2 46.1 mmHg (35.0-48.0); BG PEEP (cmH2O) 16.0 cmH2O; BG PH 7.294 (7.350-7.450); BG PO2 118.0 mmHg (83.0-108.0); BG SAMPLE SITE RIGHT BRACHIAL; BG TIDAL VOLUME(mL) 450.0 mL; BG TOTAL HEMOGLOBIN 10.6 g/dL (13.5-17.5); BG TOTAL RESPIRATORY RATE 20 b/min; BG VENT MODE VENT-PRVC; BG VENT RATE 26.0 set
[2025-03-10 16:10] LABS: BAND% 6.0 % (1.0-6.0); LYMPHOCYTES % MANUAL 5.0 % (20.0-50.0); METAMYELOCYTES % 1.0 % (0-0); MONOCYTES % MANUAL 7.0 % (2.0-8.0); MYELOCYTES % 1.0 % (0-0); NEUTROPHILS % MANUAL 80.0 % (45.0-75.0); PLATELET ESTIMATE NORMAL
[2025-03-10] MEDS: PROPOFOL 10MG/ML 100ML 100 ML IV PRN (19:35)
[2025-03-11] VITALS (71 sets, daily range): BP systolic 129–173; BP diastolic 66–117; PULSE 70–84; RESP 13–32; TEMP 36.50292–37; O2SAT 88–100
[2025-03-11 06:30] LABS: HEMATOCRIT. 28.7 % (42.0-52.0); HEMOGLOBIN. 9.2 g/dL (14.0-18.0); MEAN PLATELET VOLUME 7.6 fl (7.4-10.4); PLATELET 344 x1000/uL (130-400); RED BLOOD CELL COUNT 3.30 mill/uL (4.7-6.1); RED CELL DISTRIBUTION WIDTH 15.5 % (11.6-14.6)
[2025-03-11 06:50] LABS: CREATININE 4.9 mg/dL (0.6-1.3)
[2025-03-11 06:51] LABS: UREA NITROGEN BLOOD 63 mg/dL (9-23)
[2025-03-11] MEDS: PANTOPRAZOLE SODIUM 40 MG/VIAL IV SCH (08:20)
[2025-03-11 08:29] LABS: PHOSPHORUS 8.8 mg/dL (2.5-4.9)
[2025-03-11 09:25] LABS: BG BASE EXCESS -4.0 mmol/L (-2.0-3.0); BG CARBOXYHEMOGLOBIN 1.3 % (0.5-1.5); BG DEOXYHEMOGLOBIN 5.4 % (0.0-5.0); BG FRACTION INSPIRED OXYGEN 80; BG HCO3 ACT 22.1 mmol/L (21.0-28.0); BG METHEMOGLOBIN 0.0 % (0.5-1.5); BG OXYGEN SATURATION 94.5 % (94.0-98.0); BG OXYHEMOGLOBIN 93.3 % (94.0-98.0); BG PCO2 45.3 mmHg (35.0-48.0); BG PEEP (cmH2O) 16.0 cmH2O; BG PH 7.307 (7.350-7.450); BG PO2 78.0 mmHg (83.0-108.0); BG SAMPLE SITE LEFT RADIAL; BG TIDAL VOLUME(mL) 450.0 mL; BG TOTAL HEMOGLOBIN 10.1 g/dL (13.5-17.5); BG VENT MODE VENT - PRVC; BG VENT RATE 26.0 set
[2025-03-11 10:11] LABS: ANTI-NUCLEAR ANTIBODIES DIRECT Negative (Negative)
[2025-03-11] MEDS: AMLODIPINE 10MG TABLET PO SCH (11:56)
[2025-03-11 13:08] LABS: ATYPICAL P-ANCA <1:20 titer (Neg:<1:20); CYTOPLASMIC C-ANCA <1:20 titer (Neg:<1:20); PERINUCLEAR P-ANCA <1:20 titer (Neg:<1:20)
[2025-03-11] MEDS: ONDANSETRON HCL 4MG/2ML INJ IV PRN (15:13)
[2025-03-11] MEDS ORDERED: FENTANYL CITRATE 2,500 MCG in SODIUM CHLORIDE 0.9% 200 ML IV PRN (17:30)
[2025-03-11] MEDS: BLOOD SUGAR DIAGNOSTIC STRIP TEST SCH (17:30)
[2025-03-11] MEDS ORDERED: DEXTROSE 50% WATER 50ML SYRINGE IV PRN (17:30)
[2025-03-11] MEDS: INSULIN GLARGINE 100 UNITS/ML SUBCUT SCH (18:50)
[2025-03-11 19:06] LABS: ANTI-MYELOPEROXIDASE AB < 0.2 units (0.0-0.9); ANTI-PROTEINASE 3 ABS < 0.2 units (0.0-0.9)
[2025-03-11] MEDS: PROPOFOL 10MG/ML 100ML 100 ML IV PRN (20:20)
[2025-03-11 20:34] LABS: LYMPHOCYTES % MANUAL 3.0 % (20.0-50.0); MONOCYTES % MANUAL 9.0 % (2.0-8.0); NEUTROPHILS % MANUAL 88.0 % (45.0-75.0); PLATELET ESTIMATE NORMAL
[2025-03-12] VITALS (66 sets, daily range): BP systolic 135–196; BP diastolic 64–130; PULSE 70–104; RESP 14–40; TEMP 36.6–36.8; O2SAT 85–94
[2025-03-12 06:41] LABS: PLATELET 362 x1000/uL (130-400); RED BLOOD CELL COUNT 3.57 mill/uL (4.7-6.1); RED CELL DISTRIBUTION WIDTH 15.7 % (11.6-14.6)
[2025-03-12 06:55] LABS: CREATININE 4.6 mg/dL (0.6-1.3); TRIGLYCERIDE 233 mg/dL (0-150)
[2025-03-12 06:56] LABS: UREA NITROGEN BLOOD 65 mg/dL (9-23)
[2025-03-12 06:58] LABS: PHOSPHORUS 7.9 mg/dL (2.5-4.9)
[2025-03-12 08:41] LABS: BG BASE EXCESS -2.3 mmol/L (-2.0-3.0); BG CARBOXYHEMOGLOBIN 0.8 % (0.5-1.5); BG DEOXYHEMOGLOBIN 10.3 % (0.0-5.0); BG FRACTION INSPIRED OXYGEN 80; BG HCO3 ACT 23.1 mmol/L (21.0-28.0); BG METHEMOGLOBIN 0.1 % (0.5-1.5); BG OXYGEN SATURATION 89.6 % (94.0-98.0); BG OXYHEMOGLOBIN 88.8 % (94.0-98.0); BG PCO2 42.3 mmHg (35.0-48.0); BG PEEP (cmH2O) 10.0 cmH2O; BG PH 7.356 (7.350-7.450); BG PO2 60.8 mmHg (83.0-108.0); BG SAMPLE SITE RIGHT RADIAL; BG TIDAL VOLUME(mL) 450.0 mL; BG TOTAL HEMOGLOBIN 11.8 g/dL (13.5-17.5); BG VENT MODE VENT - PRVC; BG VENT RATE 26.0 set
[2025-03-12] MEDS: MIDAZOLAM 100MG/100ML PMX 100 ML IV PRN (09:08)
[2025-03-12] MEDS: HYDRALAZINE 20MG/ML VIAL IV PRN (11:21)
[2025-03-12] MEDS: INSULIN GLARGINE 100 UNITS/ML SUBCUT SCH ×2 (12:03→21:21)
[2025-03-12] MEDS ORDERED: NITROGLYCERIN 50MG PREMIX 250 ML IV PRN (14:15)
[2025-03-12] MEDS: HYDRALAZINE HCL 100MG TABLET PO SCH (14:37)
[2025-03-12] MEDS: PROPOFOL 10MG/ML 100ML 100 ML IV PRN (20:36)
[2025-03-12] MEDS: FENTANYL CITRATE/PF 2,500 MCG in SODIUM CHLORIDE 0.9% 200 ML IV PRN (21:19)
[2025-03-13] VITALS (63 sets, daily range): BP systolic 117–188; BP diastolic 56–95; PULSE 72–104; RESP 14–38; TEMP 36.8–37.3; O2SAT 85–98
[2025-03-13] MEDS: HYDRALAZINE 20MG/ML VIAL IV PRN (00:38)
[2025-03-13] MEDS: INSULIN REGULAR (HUMULIN R) 1000UNITS/10ML VIAL SUBCUT NR (01:51)
[2025-03-13 07:08] LABS: HEMATOCRIT. 31.0 % (42.0-52.0); HEMOGLOBIN. 9.7 g/dL (14.0-18.0); MEAN PLATELET VOLUME 8.1 fl (7.4-10.4); PLATELET 340 x1000/uL (130-400); RED BLOOD CELL COUNT 3.52 mill/uL (4.7-6.1); RED CELL DISTRIBUTION WIDTH 15.3 % (11.6-14.6)
[2025-03-13 07:17] LABS: TRIGLYCERIDE 186 mg/dL (0-150); UREA NITROGEN BLOOD 79 mg/dL (9-23)
[2025-03-13] MEDS: INSULIN REGULAR (HUMULIN R) 1000UNITS/10ML VIAL IV SCH (07:58)
[2025-03-13 08:47] LABS: CREATININE 5.0 mg/dL (0.6-1.3)
[2025-03-13 08:50] LABS: PHOSPHORUS 8.2 mg/dL (2.5-4.9)
[2025-03-13 09:07] LABS: ASPARTATE AMINOTRANSFERASE 14 IU/L (<34); BILIRUBIN DIRECT 0.2 mg/dL (<=3.0); BILIRUBIN TOTAL 0.3 mg/dL (0.1-1.0); PROTEIN TOTAL 6.3 g/dL (6.0-8.3)
[2025-03-13 09:26] LABS: BG BASE EXCESS -6.1 mmol/L (-2.0-3.0); BG CARBOXYHEMOGLOBIN 0.3 % (0.5-1.5); BG DEOXYHEMOGLOBIN 8.9 % (0.0-5.0); BG FRACTION INSPIRED OXYGEN 100; BG HCO3 ACT 20.5 mmol/L (21.0-28.0); BG METHEMOGLOBIN 0.0 % (0.5-1.5); BG OXYGEN SATURATION 91.1 % (94.0-98.0); BG OXYHEMOGLOBIN 90.8 % (94.0-98.0); BG PCO2 45.1 mmHg (35.0-48.0); BG PEEP (cmH2O) 16.0 cmH2O; BG PH 7.275 (7.350-7.450); BG PO2 68.9 mmHg (83.0-108.0); BG SAMPLE SITE LEFT RADIAL; BG TIDAL VOLUME(mL) 450.0 mL; BG TOTAL HEMOGLOBIN 10.9 g/dL (13.5-17.5); BG VENT MODE VENT - PRVC; BG VENT RATE 24.0 set
[2025-03-13] MEDS ORDERED: INSULIN GLARGINE 100 UNITS/ML SUBCUT SCH (10:00)
[2025-03-13] MEDS: INSULIN GLARGINE 100 UNITS/ML SUBCUT SCH (10:00)
[2025-03-13] MEDS ORDERED: DEXTROSE 50% WATER 50ML SYRINGE IV PRN (12:15)
[2025-03-13] MEDS ORDERED: BLOOD SUGAR DIAGNOSTIC STRIP TEST PRN (12:15)
[2025-03-13] MEDS ORDERED: KCL 20MEQ/100ML PREMIX 100 ML IV PRN (12:15)
[2025-03-13] MEDS ORDERED: SODIUM PHOSPHATE 15 MMOL in SODIUM CHLORIDE 0.9% 245 ML IV PRN (12:15)
[2025-03-13] MEDS ORDERED: MAGNESIUM 2 G PREMIX 50 ML IV PRN (12:15)
[2025-03-13] MEDS: INSULIN REGULAR (HUMULIN R) 1000UNITS/10ML VIAL IV NR (12:38)
[2025-03-13] MEDS: BLOOD SUGAR DIAGNOSTIC STRIP TEST SCH (12:52)
[2025-03-13] MEDS: INSULIN REGULAR 100U/100ML PMX 100 ML IV SCH (14:19)
[2025-03-13 14:33] LABS: CLARITY URINE HAZY (CLEAR); COLOR URINE STRAW (YELLOW)
[2025-03-13 14:34] LABS: GLUCOSE URINE 2+ (NEGATIVE); KETONES URINE NEGATIVE (NEGATIVE); LEUKOCYTE ESTERASE URINE NEGATIVE (NEGATIVE); NITRITE URINE NEGATIVE (NEGATIVE); OCCULT BLOOD URINE 2+ (NEGATIVE); PH URINE 5.5 (4.5-8.0); PROTEIN URINE 2+ (NEGATIVE); SPECIFIC GRAVITY URINE 1.020 (1.005-1.030); UROBILINOGEN URINE 0.2 E.U./dL (0.2-1.0)
[2025-03-13 15:30] LABS: BACTERIA URINE 1+; SQUAMOUS EPITHELIAL CELL URINE NONE SEEN /lpf (RARE/1+)
[2025-03-13 15:31] LABS: RBC URINE 50-100 /hpf (0-2); WBC URINE 0-2 /hpf (0-2)
[2025-03-13 17:11] LABS: LYMPHOCYTES % MANUAL 5.0 % (20.0-50.0); MONOCYTES % MANUAL 8.0 % (2.0-8.0); NEUTROPHILS % MANUAL 87.0 % (45.0-75.0); PLATELET ESTIMATE NORMAL
[2025-03-13] MEDS: IRON SUCROSE COMPLEX 100 MG/5 ML ML IV SCH (21:19)
[2025-03-14] VITALS (99 sets, daily range): BP systolic 134–175; BP diastolic 55–147; PULSE 71–95; RESP 13–33; TEMP 36.7–37.16964; O2SAT 92–100
[2025-03-14 00:52] LABS: UREA NITROGEN BLOOD 91 mg/dL (9-23)
[2025-03-14 00:54] LABS: PHOSPHORUS 7.6 mg/dL (2.5-4.9)
[2025-03-14 00:58] LABS: CREATININE 5.1 mg/dL (0.6-1.3)
[2025-03-14 07:39] LABS: BG BASE EXCESS -3.1 mmol/L (-2.0-3.0); BG CARBOXYHEMOGLOBIN 0.5 % (0.5-1.5); BG DEOXYHEMOGLOBIN 5.1 % (0.0-5.0); BG FRACTION INSPIRED OXYGEN 90; BG HCO3 ACT 23.2 mmol/L (21.0-28.0); BG METHEMOGLOBIN 0.2 % (0.5-1.5); BG OXYGEN SATURATION 94.9 % (94.0-98.0); BG OXYHEMOGLOBIN 94.2 % (94.0-98.0); BG PCO2 46.8 mmHg (35.0-48.0); BG PEEP (cmH2O) 16.0 cmH2O; BG PH 7.313 (7.350-7.450); BG PO2 80.8 mmHg (83.0-108.0); BG SAMPLE SITE LEFT RADIAL; BG TIDAL VOLUME(mL) 450.0 mL; BG TOTAL HEMOGLOBIN 11.1 g/dL (13.5-17.5); BG VENT MODE PRVC; BG VENT RATE 26.0 set
[2025-03-14 08:11] LABS: HEMATOCRIT. 29.8 % (42.0-52.0); HEMOGLOBIN. 9.7 g/dL (14.0-18.0); MEAN PLATELET VOLUME 7.9 fl (7.4-10.4); PLATELET 358 x1000/uL (130-400); RED BLOOD CELL COUNT 3.50 mill/uL (4.7-6.1); RED CELL DISTRIBUTION WIDTH 15.1 % (11.6-14.6)
[2025-03-14 09:16] LABS: CREATININE 5.1 mg/dL (0.6-1.3); UREA NITROGEN BLOOD 106 mg/dL (9-23)
[2025-03-14 09:18] LABS: PHOSPHORUS 8.4 mg/dL (2.5-4.9)
[2025-03-14 11:41] LABS: BAND% 3.0 % (1.0-6.0); LYMPHOCYTES % MANUAL 6.0 % (20.0-50.0); MONOCYTES % MANUAL 3.0 % (2.0-8.0); NEUTROPHILS % MANUAL 88.0 % (45.0-75.0); PLATELET ESTIMATE NORMAL
[2025-03-14] MEDS: IPRATROPIUM/ALBUTEROL 0.5-3(2.5)MG/3ML NEB HHN SCH (20:01)
[2025-03-14] MEDS: BLOOD SUGAR DIAGNOSTIC STRIP TEST SCH (21:25)
[2025-03-15] VITALS (91 sets, daily range): BP systolic 119–170; BP diastolic 54–90; PULSE 76–109; RESP 13–36; TEMP 36.9–37.8; O2SAT 90–98
[2025-03-15 04:07] LABS: PLATELET 383 x1000/uL (130-400); RED BLOOD CELL COUNT 3.60 mill/uL (4.7-6.1); RED CELL DISTRIBUTION WIDTH 15.5 % (11.6-14.6)
[2025-03-15 04:22] LABS: CREATININE 4.4 mg/dL (0.6-1.3)
[2025-03-15 04:23] LABS: TRIGLYCERIDE 186 mg/dL (0-150); UREA NITROGEN BLOOD 85 mg/dL (9-23)
[2025-03-15 04:24] LABS: ASPARTATE AMINOTRANSFERASE 16 IU/L (<34); LDL CHOLESTEROL 161 mg/dL (5-100)
[2025-03-15 04:25] LABS: BILIRUBIN DIRECT 0.3 mg/dL (<=3.0); BILIRUBIN TOTAL 0.4 mg/dL (0.1-1.0); PHOSPHORUS 6.8 mg/dL (2.5-4.9); PROTEIN TOTAL 6.1 g/dL (6.0-8.3)
[2025-03-15 09:31] LABS: BG BASE EXCESS -3.7 mmol/L (-2.0-3.0); BG CARBOXYHEMOGLOBIN 0.3 % (0.5-1.5); BG DEOXYHEMOGLOBIN 6.2 % (0.0-5.0); BG FRACTION INSPIRED OXYGEN 60; BG HCO3 ACT 22.2 mmol/L (21.0-28.0); BG METHEMOGLOBIN 0.0 % (0.5-1.5); BG OXYGEN SATURATION 93.8 % (94.0-98.0); BG OXYHEMOGLOBIN 93.5 % (94.0-98.0); BG PCO2 43.6 mmHg (35.0-48.0); BG PEEP (cmH2O) 16.0 cmH2O; BG PH 7.325 (7.350-7.450); BG PO2 76.5 mmHg (83.0-108.0); BG SAMPLE SITE LEFT RADIAL; BG TIDAL VOLUME(mL) 450.0 mL; BG TOTAL HEMOGLOBIN 10.9 g/dL (13.5-17.5); BG VENT MODE VENT - PRVC; BG VENT RATE 26.0 set
[2025-03-15] MEDS: BLOOD SUGAR DIAGNOSTIC STRIP TEST SCH (12:07)
[2025-03-15] MEDS: ACETAMINOPHEN 325MG TABLET PO PRN (20:19)
[2025-03-15] MEDS: TOTAL PARENTERAL NUTRITION 2,000 ML IV SCH (20:19)
[2025-03-15 21:28] LABS: HEMATOCRIT. 30.6 % (42.0-52.0); HEMOGLOBIN. 9.7 g/dL (14.0-18.0); MEAN PLATELET VOLUME 8.0 fl (7.4-10.4); PLATELET 384 x1000/uL (130-400); RED BLOOD CELL COUNT 3.52 mill/uL (4.7-6.1); RED CELL DISTRIBUTION WIDTH 15.7 % (11.6-14.6)
[2025-03-15 21:47] LABS: LYMPHOCYTES % MANUAL 5.0 % (20.0-50.0); METAMYELOCYTES % 1.0 % (0-0); MONOCYTES % MANUAL 7.0 % (2.0-8.0); MYELOCYTES % 1.0 % (0-0); NEUTROPHILS % MANUAL 86.0 % (45.0-75.0); PLATELET ESTIMATE NORMAL
[2025-03-16] VITALS (93 sets, daily range): BP systolic 129–192; BP diastolic 59–157; PULSE 64–106; RESP 14–36; TEMP 36.6696–37.3; O2SAT 93–100
[2025-03-16] MEDS: INSULIN LISPRO 100 UNITS/ML SUBCUT NR ×2 (03:11→06:22)
[2025-03-16 07:22] LABS: UREA NITROGEN BLOOD 100 mg/dL (9-23)
[2025-03-16 07:24] LABS: ASPARTATE AMINOTRANSFERASE 13 IU/L (<34)
[2025-03-16 07:25] LABS: BILIRUBIN TOTAL 0.3 mg/dL (0.1-1.0); PROTEIN TOTAL 5.6 g/dL (6.0-8.3)
[2025-03-16 08:22] LABS: CREATININE 5.1 mg/dL (0.6-1.3)
[2025-03-16 08:37] LABS: BG BASE EXCESS -4.2 mmol/L (-2.0-3.0); BG CARBOXYHEMOGLOBIN 0.7 % (0.5-1.5); BG DEOXYHEMOGLOBIN 3.8 % (0.0-5.0); BG FRACTION INSPIRED OXYGEN 60; BG HCO3 ACT 21.9 mmol/L (21.0-28.0); BG METHEMOGLOBIN 0.1 % (0.5-1.5); BG OXYGEN SATURATION 96.2 % (94.0-98.0); BG OXYHEMOGLOBIN 95.4 % (94.0-98.0); BG PCO2 44.6 mmHg (35.0-48.0); BG PEEP (cmH2O) 16.0 cmH2O; BG PH 7.308 (7.350-7.450); BG PO2 92.7 mmHg (83.0-108.0); BG SAMPLE SITE LEFT RADIAL; BG TIDAL VOLUME(mL) 450.0 mL; BG TOTAL HEMOGLOBIN 9.0 g/dL (13.5-17.5); BG VENT MODE VENT - PRVC; BG VENT RATE 26.0 set
[2025-03-16 17:12] LABS: CREATININE 4.1 mg/dL (0.6-1.3); UREA NITROGEN BLOOD 69 mg/dL (9-23)
[2025-03-16 17:14] LABS: PHOSPHORUS 4.7 mg/dL (2.5-4.9)
[2025-03-16] MEDS: INSULIN REGULAR 100U/100ML PMX 100 ML IV SCH (17:30)
[2025-03-16 19:52] LABS: CREATININE 4.4 mg/dL (0.6-1.3)
[2025-03-16] MEDS ORDERED: DEXTROSE 50% WATER 50ML SYRINGE IV PRN (20:00)
[2025-03-16] MEDS ORDERED: SODIUM PHOSPHATE 15 MMOL in SODIUM CHLORIDE 0.9% 245 ML IV PRN (20:00)
[2025-03-16] MEDS ORDERED: MAGNESIUM 2 G PREMIX 50 ML IV PRN (20:00)
[2025-03-16 20:07] LABS: UREA NITROGEN BLOOD 88 mg/dL (9-23)
[2025-03-16 20:09] LABS: PHOSPHORUS 5.4 mg/dL (2.5-4.9)
[2025-03-16] MEDS: TOTAL PARENTERAL NUTRITION 2,000 ML IV SCH (21:15)
[2025-03-17] VITALS (88 sets, daily range): BP systolic 140–179; BP diastolic 64–102; PULSE 81–98; RESP 13–35; TEMP 36.6–36.9; O2SAT 92–99
[2025-03-17] MEDS: MIDAZOLAM 100MG/100ML PMX 100 ML IV PRN (02:11)
[2025-03-17 06:49] LABS: HEMATOCRIT. 28.6 % (42.0-52.0); HEMOGLOBIN. 9.0 g/dL (14.0-18.0); MEAN PLATELET VOLUME 7.9 fl (7.4-10.4); PLATELET 273 x1000/uL (130-400); RED BLOOD CELL COUNT 3.26 mill/uL (4.7-6.1); RED CELL DISTRIBUTION WIDTH 15.5 % (11.6-14.6)
[2025-03-17 07:13] LABS: CREATININE 4.6 mg/dL (0.6-1.3)
[2025-03-17 07:14] LABS: TRIGLYCERIDE 108 mg/dL (0-150); UREA NITROGEN BLOOD 90 mg/dL (9-23)
[2025-03-17 07:16] LABS: PHOSPHORUS 5.0 mg/dL (2.5-4.9)
[2025-03-17] MEDS: PHYTONADIONE 10MG/ML INJ SUBCUT SCH (09:10)
[2025-03-17 09:28] LABS: BG BASE EXCESS -4.6 mmol/L (-2.0-3.0); BG CARBOXYHEMOGLOBIN 1.1 % (0.5-1.5); BG DEOXYHEMOGLOBIN 3.7 % (0.0-5.0); BG FRACTION INSPIRED OXYGEN 60; BG HCO3 ACT 21.9 mmol/L (21.0-28.0); BG METHEMOGLOBIN 0.2 % (0.5-1.5); BG OXYGEN SATURATION 96.3 % (94.0-98.0); BG OXYHEMOGLOBIN 95.0 % (94.0-98.0); BG PCO2 46.5 mmHg (35.0-48.0); BG PEEP (cmH2O) 14.0 cmH2O; BG PH 7.291 (7.350-7.450); BG PO2 88.5 mmHg (83.0-108.0); BG SAMPLE SITE RIGHT RADIAL; BG TIDAL VOLUME(mL) 450.0 mL; BG TOTAL HEMOGLOBIN 10.2 g/dL (13.5-17.5); BG VENT MODE VENT - PRVC; BG VENT RATE 26.0 set
[2025-03-17] MEDS: POTASSIUM CHLORIDE 40 MEQ in SODIUM CHLORIDE 0.9% 230 ML IV PRN (10:47)
[2025-03-17] MEDS: INSULIN REGULAR 100U/100ML PMX 100 ML IV PRN (10:48)
[2025-03-17] MEDS ORDERED: TOTAL PARENTERAL NUTRITION 2,000 ML IV SCH (11:00)
[2025-03-17 13:55] LABS: BAND% 3.0 % (1.0-6.0); LYMPHOCYTES % MANUAL 6.0 % (20.0-50.0); MONOCYTES % MANUAL 2.0 % (2.0-8.0); NEUTROPHILS % MANUAL 89.0 % (45.0-75.0); PLATELET ESTIMATE NORMAL
[2025-03-17] MEDS ORDERED: INSULIN REGULAR 100U/100ML PMX 100 ML IV SCH (14:15)
[2025-03-17] MEDS: BLOOD SUGAR DIAGNOSTIC STRIP TEST SCH (16:23)
[2025-03-17] MEDS: TOTAL PARENTERAL NUTRITION 2,000 ML IV SCH (20:41)
[2025-03-18] VITALS (61 sets, daily range): BP systolic 116–163; BP diastolic 52–76; PULSE 85–102; RESP 13–30; TEMP 36.114–37; O2SAT 90–100
[2025-03-18 00:25] LABS: CREATININE 4.8 mg/dL (0.6-1.3); UREA NITROGEN BLOOD 99 mg/dL (9-23)
[2025-03-18 00:27] LABS: ASPARTATE AMINOTRANSFERASE 14 IU/L (<34)
[2025-03-18 00:28] LABS: BILIRUBIN TOTAL 0.2 mg/dL (0.1-1.0); PROTEIN TOTAL 5.7 g/dL (6.0-8.3)
[2025-03-18] MEDS: KCL 20MEQ/100ML PREMIX 100 ML IV PRN (01:37)
[2025-03-18] MEDS ORDERED: FENTANYL 2500MCG/250ML PMX 250 ML IV PRN (04:30)
[2025-03-18] MEDS: INSULIN REGULAR 100U/100ML PMX 100 ML IV PRN (04:32)
[2025-03-18] MEDS: FENTANYL CITRATE 2,500 MCG in SODIUM CHLORIDE 0.9% 200 ML IV PRN (06:55)
[2025-03-18 07:00] LABS: BASOPHILS % 0.4 % (0.0-2.0); EOSINOPHILS % 2.3 % (0.0-5.0); HEMATOCRIT. 27.8 % (42.0-52.0); HEMOGLOBIN. 8.7 g/dL (14.0-18.0); LYMPHOCYTES % 7.6 % (20.0-50.0); MEAN PLATELET VOLUME 8.5 fl (7.4-10.4); MONOCYTES % 4.6 % (2.0-8.0); NEUTROPHILS % 85.1 % (40.0-76.0); PLATELET 258 x1000/uL (130-400); RED BLOOD CELL COUNT 3.12 mill/uL (4.7-6.1); RED CELL DISTRIBUTION WIDTH 15.7 % (11.6-14.6)
[2025-03-18 07:09] LABS: INR 1.1
[2025-03-18 07:55] LABS: UREA NITROGEN BLOOD 99 mg/dL (9-23)
[2025-03-18 07:57] LABS: PHOSPHORUS 5.0 mg/dL (2.5-4.9)
[2025-03-18] MEDS ORDERED: DIATR MEGLU/DIATRIZOATE SOLN 30ML PO SCH (09:00)
[2025-03-18 09:05] LABS: BG BASE EXCESS -6.4 mmol/L (-2.0-3.0); BG CARBOXYHEMOGLOBIN 0.4 % (0.5-1.5); BG DEOXYHEMOGLOBIN 3.7 % (0.0-5.0); BG FRACTION INSPIRED OXYGEN 60; BG HCO3 ACT 21.3 mmol/L (21.0-28.0); BG METHEMOGLOBIN 0.0 % (0.5-1.5); BG OXYGEN SATURATION 96.3 % (94.0-98.0); BG OXYHEMOGLOBIN 95.9 % (94.0-98.0); BG PCO2 52.1 mmHg (35.0-48.0); BG PEEP (cmH2O) 14.0 cmH2O; BG PH 7.229 (7.350-7.450); BG PO2 91.0 mmHg (83.0-108.0); BG SAMPLE SITE RIGHT RADIAL; BG TIDAL VOLUME(mL) 450.0 mL; BG TOTAL HEMOGLOBIN 10.9 g/dL (13.5-17.5); BG VENT MODE VENT - PRVC; BG VENT RATE 26.0 set
[2025-03-18 11:51] LABS: CREATININE 5.1 mg/dL (0.6-1.3)
[2025-03-18] MEDS: TOTAL PARENTERAL NUTRITION 2,000 ML IV SCH (21:29)
[2025-03-19] VITALS (81 sets, daily range): BP systolic 93–139; BP diastolic 47–87; PULSE 91–121; RESP 15–35; TEMP 36.7–37.8; O2SAT 90–99
[2025-03-19 06:47] LABS: HEMATOCRIT. 25.5 % (42.0-52.0); HEMOGLOBIN. 7.8 g/dL (14.0-18.0); MEAN PLATELET VOLUME 8.7 fl (7.4-10.4); PLATELET 183 x1000/uL (130-400); RED BLOOD CELL COUNT 2.88 mill/uL (4.7-6.1); RED CELL DISTRIBUTION WIDTH 15.8 % (11.6-14.6)
[2025-03-19 07:05] LABS: INR 1.1
[2025-03-19 07:41] LABS: CREATININE 4.6 mg/dL (0.6-1.3)
[2025-03-19 07:43] LABS: BG BASE EXCESS -2.8 mmol/L (-2.0-3.0); BG CARBOXYHEMOGLOBIN 0.2 % (0.5-1.5); BG DEOXYHEMOGLOBIN 1.1 % (0.0-5.0); BG FRACTION INSPIRED OXYGEN 45; BG HCO3 ACT 22.4 mmol/L (21.0-28.0); BG METHEMOGLOBIN 0.1 % (0.5-1.5); BG OXYGEN SATURATION 98.9 % (94.0-98.0); BG OXYHEMOGLOBIN 98.6 % (94.0-98.0); BG PCO2 40.4 mmHg (35.0-48.0); BG PEEP (cmH2O) 14.0 cmH2O; BG PH 7.362 (7.350-7.450); BG PO2 135.5 mmHg (83.0-108.0); BG SAMPLE SITE LEFT RADIAL; BG TIDAL VOLUME(mL) 450.0 mL; BG TOTAL HEMOGLOBIN 8.9 g/dL (13.5-17.5); BG VENT MODE VENT - AC/PRVC; BG VENT RATE 26.0 set
[2025-03-19 07:44] LABS: UREA NITROGEN BLOOD 79 mg/dL (9-23)
[2025-03-19 07:46] LABS: PHOSPHORUS 3.6 mg/dL (2.5-4.9)
[2025-03-19] MEDS: KCL 20MEQ/100ML PREMIX 100 ML IV NR (08:40)
[2025-03-19] MEDS: HEPARIN BOLUS PRN aPTT <36 IV (08:41)
[2025-03-19] MEDS ORDERED: BLOOD SUGAR DIAGNOSTIC STRIP TEST SCH (09:00)
[2025-03-19 14:31] LABS: BAND% 7.0 % (1.0-6.0); EOSINOPHILS % MANUAL 8.0 % (0.0-5.0); LYMPHOCYTES % MANUAL 7.0 % (20.0-50.0); MONOCYTES % MANUAL 4.0 % (2.0-8.0); NEUTROPHILS % MANUAL 74.0 % (45.0-75.0); PLATELET ESTIMATE NORMAL
[2025-03-19] MEDS: FENTANYL 2500MCG/250ML PMX 250 ML IV PRN (21:26)
[2025-03-19] MEDS ORDERED: DEXMEDETOMIDINE 250 ML IV PRN (22:30)
[2025-03-19] MEDS: DEXMEDETOMIDINE 100 ML IV PRN (22:32)
[2025-03-20] VITALS (79 sets, daily range): BP systolic 97–132; BP diastolic 51–85; PULSE 61–94; RESP 17–34; TEMP 36.22512–37.6; O2SAT 85–100
[2025-03-20] MEDS: HEPARIN BOLUS PRN aPTT 37-44 IV (04:49)
[2025-03-20 06:26] LABS: HEMATOCRIT. 25.6 % (42.0-52.0); HEMOGLOBIN. 8.0 g/dL (14.0-18.0); MEAN PLATELET VOLUME 9.2 fl (7.4-10.4); PLATELET 184 x1000/uL (130-400); RED BLOOD CELL COUNT 2.91 mill/uL (4.7-6.1); RED CELL DISTRIBUTION WIDTH 15.4 % (11.6-14.6)
[2025-03-20 06:35] LABS: UREA NITROGEN BLOOD 96 mg/dL (9-23)
[2025-03-20 06:37] LABS: PHOSPHORUS 4.0 mg/dL (2.5-4.9)
[2025-03-20 06:41] LABS: CREATININE 5.3 mg/dL (0.6-1.3)
[2025-03-20] MEDS ORDERED: POTASSIUM CHLORIDE 20 MEQ in DEXT 5% WATER 90 ML IV ONE (08:00)
[2025-03-20] MEDS: KCL 20MEQ/100ML PREMIX 100 ML IV SCH (08:44)
[2025-03-20 08:55] LABS: BG BASE EXCESS -6.7 mmol/L (-2.0-3.0); BG CARBOXYHEMOGLOBIN 0.5 % (0.5-1.5); BG DEOXYHEMOGLOBIN 2.5 % (0.0-5.0); BG FRACTION INSPIRED OXYGEN 60; BG HCO3 ACT 19.4 mmol/L (21.0-28.0); BG METHEMOGLOBIN 0.3 % (0.5-1.5); BG OXYGEN SATURATION 97.5 % (94.0-98.0); BG OXYHEMOGLOBIN 96.7 % (94.0-98.0); BG PCO2 41.2 mmHg (35.0-48.0); BG PEEP (cmH2O) 12.0 cmH2O; BG PH 7.291 (7.350-7.450); BG PO2 98.0 mmHg (83.0-108.0); BG SAMPLE SITE RIGHT RADIAL; BG TIDAL VOLUME(mL) 450.0 mL; BG TOTAL HEMOGLOBIN 9.0 g/dL (13.5-17.5); BG TOTAL RESPIRATORY RATE 26 b/min; BG VENT MODE VENT-PRVC; BG VENT RATE 26.0 set
[2025-03-20] MEDS ORDERED: DEXTROSE 50% WATER 50ML SYRINGE IV PRN (12:00)
[2025-03-20] MEDS: BLOOD SUGAR DIAGNOSTIC STRIP TEST SCH (12:50)
[2025-03-20] MEDS: INSULIN LISPRO 100 UNITS/ML SUBCUT SCH (13:20)
[2025-03-20 14:01] LABS: BAND% 2.0 % (1.0-6.0); EOSINOPHILS % MANUAL 5.0 % (0.0-5.0); LYMPHOCYTES % MANUAL 8.0 % (20.0-50.0); MONOCYTES % MANUAL 8.0 % (2.0-8.0); NEUTROPHILS % MANUAL 77.0 % (45.0-75.0); PLATELET ESTIMATE NORMAL
[2025-03-20] MEDS: PANTOPRAZOLE SODIUM 40 MG/VIAL IV SCH (16:46)
[2025-03-20 17:10] LABS: ASPARTATE AMINOTRANSFERASE 19 IU/L (<34); BILIRUBIN DIRECT 0.2 mg/dL (<=3.0); BILIRUBIN TOTAL 0.2 mg/dL (0.1-1.0); PROTEIN TOTAL 5.5 g/dL (6.0-8.3)
[2025-03-20] MEDS: SUCRALFATE 1G TABLET PO SCH (17:53)
[2025-03-20] MEDS ORDERED: INSULIN LISPRO 100 UNITS/ML SUBCUT SCH (18:00)
[2025-03-20] MEDS ORDERED: BLOOD SUGAR DIAGNOSTIC STRIP TEST SCH (18:00)
[2025-03-20] MEDS: IPRATROPIUM/ALBUTEROL 0.5-3(2.5)MG/3ML NEB HHN PRN (20:16)
[2025-03-20] MEDS: TOTAL PARENTERAL NUTRITION 2,000 ML IV SCH (21:19)
[2025-03-20 21:24] LABS: CREATININE 4.6 mg/dL (0.6-1.3); UREA NITROGEN BLOOD 80.0 mg/dL (9-23)
[2025-03-21] VITALS (101 sets, daily range): BP systolic 97–164; BP diastolic 51–103; PULSE 66–98; RESP 15–29; TEMP 36.4–37.6; O2SAT 87–97
[2025-03-21] MEDS: BLOOD SUGAR DIAGNOSTIC STRIP TEST SCH
[2025-03-21] MEDS: INSULIN GLARGINE 100 UNITS/ML SUBCUT SCH (00:26)
[2025-03-21] MEDS: INSULIN LISPRO 100 UNITS/ML SUBCUT SCH ×2 (00:38→08:06)
[2025-03-21 07:06] LABS: HEMATOCRIT. 25.9 % (42.0-52.0); HEMOGLOBIN. 8.1 g/dL (14.0-18.0); MEAN PLATELET VOLUME 9.7 fl (7.4-10.4); PLATELET 224 x1000/uL (130-400); RED BLOOD CELL COUNT 2.96 mill/uL (4.7-6.1); RED CELL DISTRIBUTION WIDTH 16.0 % (11.6-14.6)
[2025-03-21 07:35] LABS: CREATININE 4.9 mg/dL (0.6-1.3); UREA NITROGEN BLOOD 84 mg/dL (9-23)
[2025-03-21 07:37] LABS: PHOSPHORUS 2.9 mg/dL (2.5-4.9)
[2025-03-21] MEDS ORDERED: INSULIN LISPRO 100 UNITS/ML SUBCUT SCH ×2 (08:20)
[2025-03-21 09:36] LABS: BG BASE EXCESS -6.0 mmol/L (-2.0-3.0); BG CARBOXYHEMOGLOBIN 0.6 % (0.5-1.5); BG DEOXYHEMOGLOBIN 4.8 % (0.0-5.0); BG FRACTION INSPIRED OXYGEN 60; BG HCO3 ACT 19.1 mmol/L (21.0-28.0); BG METHEMOGLOBIN 0.2 % (0.5-1.5); BG OXYGEN SATURATION 95.2 % (94.0-98.0); BG OXYHEMOGLOBIN 94.4 % (94.0-98.0); BG PCO2 36.2 mmHg (35.0-48.0); BG PEEP (cmH2O) 12.0 cmH2O; BG PH 7.341 (7.350-7.450); BG PO2 79.1 mmHg (83.0-108.0); BG SAMPLE SITE RIGHT RADIAL; BG TIDAL VOLUME(mL) 450.0 mL; BG TOTAL HEMOGLOBIN 8.6 g/dL (13.5-17.5); BG TOTAL RESPIRATORY RATE 27 b/min; BG VENT MODE VENT-PRVC; BG VENT RATE 26.0 set
[2025-03-21 10:29] LABS: BAND% 5.0 % (1.0-6.0); EOSINOPHILS % MANUAL 8.0 % (0.0-5.0); LYMPHOCYTES % MANUAL 3.0 % (20.0-50.0); MONOCYTES % MANUAL 9.0 % (2.0-8.0); NEUTROPHILS % MANUAL 75.0 % (45.0-75.0); PLATELET ESTIMATE NORMAL
[2025-03-21] MEDS: ENOXAPARIN 150MG/ML SYR SUBCUT SCH (16:12)
[2025-03-21] MEDS: TOTAL PARENTERAL NUTRITION 2,000 ML IV SCH (21:08)
[2025-03-22] VITALS (106 sets, daily range): BP systolic 84–160; BP diastolic 51–85; PULSE 64–93; RESP 9–35; TEMP 36.6–37.2252; O2SAT 0–100
[2025-03-22 07:06] LABS: UREA NITROGEN BLOOD 77.0 mg/dL (9-23)
[2025-03-22 07:33] LABS: MEAN PLATELET VOLUME 10.3 fl (7.4-10.4); PLATELET 205 x1000/uL (130-400); RED BLOOD CELL COUNT 2.23 mill/uL (4.7-6.1); RED CELL DISTRIBUTION WIDTH 16.8 % (11.6-14.6)
[2025-03-22 07:37] LABS: HEMATOCRIT. 20.1 % (42.0-52.0); HEMOGLOBIN. 6.0 g/dL (14.0-18.0)
[2025-03-22 08:15] LABS: CREATININE 5.5 mg/dL (0.6-1.3)
[2025-03-22] MEDS: MIDODRINE HCL 5MG TABLET PO SCH (08:30)
[2025-03-22 09:50] LABS: BAND% 1.0 % (1.0-6.0); EOSINOPHILS % MANUAL 1.0 % (0.0-5.0); LYMPHOCYTES % MANUAL 12.0 % (20.0-50.0); MONOCYTES % MANUAL 8.0 % (2.0-8.0); NEUTROPHILS % MANUAL 78.0 % (45.0-75.0)
[2025-03-22 09:51] LABS: PLATELET ESTIMATE NORMAL
[2025-03-22 10:44] LABS: BG BASE EXCESS -7.3 mmol/L (-2.0-3.0); BG CARBOXYHEMOGLOBIN 1.5 % (0.5-1.5); BG DEOXYHEMOGLOBIN 2.0 % (0.0-5.0); BG FRACTION INSPIRED OXYGEN 80; BG HCO3 ACT 19.4 mmol/L (21.0-28.0); BG METHEMOGLOBIN 0.0 % (0.5-1.5); BG OXYGEN SATURATION 98.0 % (94.0-98.0); BG OXYHEMOGLOBIN 96.5 % (94.0-98.0); BG PCO2 44.5 mmHg (35.0-48.0); BG PEEP (cmH2O) 12.0 cmH2O; BG PH 7.257 (7.350-7.450); BG PO2 106.1 mmHg (83.0-108.0); BG SAMPLE SITE RIGHT RADIAL; BG TIDAL VOLUME(mL) 450.0 mL; BG TOTAL HEMOGLOBIN 8.9 g/dL (13.5-17.5); BG VENT MODE VENT - PRVC; BG VENT RATE 26.0 set
[2025-03-22] MEDS: MIDAZOLAM 100MG/100ML PMX 100 ML IV PRN (19:59)
[2025-03-22] MEDS: TOTAL PARENTERAL NUTRITION 2,000 ML IV SCH (21:11)
[2025-03-23] VITALS (97 sets, daily range): BP systolic 82–144; BP diastolic 54–117; PULSE 65–82; RESP 0–31; TEMP 36.6–37; O2SAT 89–99
[2025-03-23] MEDS: IPRATROPIUM/ALBUTEROL 0.5-3(2.5)MG/3ML NEB HHN SCH (00:33)
[2025-03-23 06:01] LABS: PLATELET 248 x1000/uL (130-400); RED BLOOD CELL COUNT 2.66 mill/uL (4.7-6.1); RED CELL DISTRIBUTION WIDTH 15.9 % (11.6-14.6)
[2025-03-23 06:15] LABS: CREATININE 4.8 mg/dL (0.6-1.3); UREA NITROGEN BLOOD 83 mg/dL (9-23)
[2025-03-23 06:18] LABS: PHOSPHORUS 2.5 mg/dL (2.5-4.9)
[2025-03-23] MEDS ORDERED: BLOOD SUGAR DIAGNOSTIC STRIP TEST SCH (09:00)
[2025-03-23 10:05] LABS: BG BASE EXCESS -5.4 mmol/L (-2.0-3.0); BG CARBOXYHEMOGLOBIN 0.5 % (0.5-1.5); BG DEOXYHEMOGLOBIN 4.1 % (0.0-5.0); BG FRACTION INSPIRED OXYGEN 80; BG HCO3 ACT 20.5 mmol/L (21.0-28.0); BG METHEMOGLOBIN 0.3 % (0.5-1.5); BG OXYGEN SATURATION 95.9 % (94.0-98.0); BG OXYHEMOGLOBIN 95.1 % (94.0-98.0); BG PCO2 41.4 mmHg (35.0-48.0); BG PEEP (cmH2O) 12.0 cmH2O; BG PH 7.312 (7.350-7.450); BG PO2 80.5 mmHg (83.0-108.0); BG SAMPLE SITE RIGHT RADIAL; BG TIDAL VOLUME(mL) 450.0 mL; BG TOTAL HEMOGLOBIN 8.5 g/dL (13.5-17.5); BG VENT MODE VENT - PRVC; BG VENT RATE 26.0 set
[2025-03-24] VITALS (97 sets, daily range): BP systolic 77–186; BP diastolic 39–102; PULSE 66–97; RESP 13–36; TEMP 36.114–36.6; O2SAT 80–98
[2025-03-24 07:19] LABS: HEMATOCRIT. 23.3 % (42.0-52.0); HEMOGLOBIN. 7.5 g/dL (14.0-18.0); MEAN PLATELET VOLUME 9.5 fl (7.4-10.4); PLATELET 261 x1000/uL (130-400); RED BLOOD CELL COUNT 2.69 mill/uL (4.7-6.1); RED CELL DISTRIBUTION WIDTH 15.9 % (11.6-14.6)
[2025-03-24 07:45] LABS: TRIGLYCERIDE 118.0 mg/dL (0-150); UREA NITROGEN BLOOD 91.0 mg/dL (9-23)
[2025-03-24 08:29] LABS: CREATININE 5.1 mg/dL (0.6-1.3)
[2025-03-24] MEDS: MIDODRINE HCL 5MG TABLET PO PRN (08:57)
[2025-03-24] MEDS: NOREPINEPHRINE 8MG/250ML PMX 250 ML IV PRN (08:59)
[2025-03-24] MEDS: METHYLPREDNISOLONE SOD SUCC 125MG/2ML (ACT-O-VIAL) IV SCH (09:08)
[2025-03-24 09:46] LABS: BG BASE EXCESS -6.6 mmol/L (-2.0-3.0); BG CARBOXYHEMOGLOBIN 1.5 % (0.5-1.5); BG DEOXYHEMOGLOBIN 8.7 % (0.0-5.0); BG FRACTION INSPIRED OXYGEN 100; BG HCO3 ACT 20.9 mmol/L (21.0-28.0); BG METHEMOGLOBIN 0.1 % (0.5-1.5); BG OXYGEN SATURATION 91.2 % (94.0-98.0); BG OXYHEMOGLOBIN 89.7 % (94.0-98.0); BG PCO2 53.0 mmHg (35.0-48.0); BG PEEP (cmH2O) 14.0 cmH2O; BG PH 7.214 (7.350-7.450); BG PO2 66.8 mmHg (83.0-108.0); BG SAMPLE SITE RIGHT RADIAL; BG TIDAL VOLUME(mL) 450.0 mL; BG TOTAL HEMOGLOBIN 7.8 g/dL (13.5-17.5); BG VENT MODE VENT - PRVC; BG VENT RATE 26.0 set
[2025-03-24 15:51] LABS: BAND% 9.0 % (1.0-6.0); EOSINOPHILS % MANUAL 1.0 % (0.0-5.0); LYMPHOCYTES % MANUAL 1.0 % (20.0-50.0); MONOCYTES % MANUAL 8.0 % (2.0-8.0); NEUTROPHILS % MANUAL 81.0 % (45.0-75.0); PLATELET ESTIMATE NORMAL
[2025-03-24 17:47] LABS: BG BASE EXCESS -2.4 mmol/L (-2.0-3.0); BG CARBOXYHEMOGLOBIN 0.3 % (0.5-1.5); BG DEOXYHEMOGLOBIN 5.0 % (0.0-5.0); BG FRACTION INSPIRED OXYGEN 80; BG HCO3 ACT 24.0 mmol/L (21.0-28.0); BG METHEMOGLOBIN 0.0 % (0.5-1.5); BG OXYGEN SATURATION 95.0 % (94.0-98.0); BG OXYHEMOGLOBIN 94.7 % (94.0-98.0); BG PCO2 49.3 mmHg (35.0-48.0); BG PEEP (cmH2O) 14.0 cmH2O; BG PH 7.305 (7.350-7.450); BG PO2 76.8 mmHg (83.0-108.0); BG SAMPLE SITE RIGHT RADIAL; BG TIDAL VOLUME(mL) 450.0 mL; BG TOTAL HEMOGLOBIN 8.9 g/dL (13.5-17.5); BG TOTAL RESPIRATORY RATE 27 b/min; BG VENT MODE VENT-PRVC; BG VENT RATE 26.0 set
[2025-03-24] MEDS: DEXMEDETOMIDINE 100 ML IV PRN (23:21)
[2025-03-25] VITALS (105 sets, daily range): BP systolic 118–188; BP diastolic 68–99; PULSE 74–88; RESP 13–32; TEMP 36.3–37.16964; O2SAT 95–100
[2025-03-25 05:35] LABS: HEMATOCRIT. 24.1 % (42.0-52.0); HEMOGLOBIN. 7.6 g/dL (14.0-18.0); MEAN PLATELET VOLUME 8.6 fl (7.4-10.4); PLATELET 255 x1000/uL (130-400); RED BLOOD CELL COUNT 2.78 mill/uL (4.7-6.1); RED CELL DISTRIBUTION WIDTH 16.3 % (11.6-14.6)
[2025-03-25 05:55] LABS: CREATININE 4.5 mg/dL (0.6-1.3); UREA NITROGEN BLOOD 85 mg/dL (9-23)
[2025-03-25 05:57] LABS: PHOSPHORUS 2.5 mg/dL (2.5-4.9)
[2025-03-25 08:56] LABS: BG BASE EXCESS -4.0 mmol/L (-2.0-3.0); BG CARBOXYHEMOGLOBIN 0.9 % (0.5-1.5); BG DEOXYHEMOGLOBIN 2.9 % (0.0-5.0); BG FRACTION INSPIRED OXYGEN 80; BG HCO3 ACT 23.0 mmol/L (21.0-28.0); BG METHEMOGLOBIN 0.1 % (0.5-1.5); BG OXYGEN SATURATION 97.1 % (94.0-98.0); BG OXYHEMOGLOBIN 96.1 % (94.0-98.0); BG PCO2 52.4 mmHg (35.0-48.0); BG PEEP (cmH2O) 14.0 cmH2O; BG PH 7.260 (7.350-7.450); BG PO2 96.9 mmHg (83.0-108.0); BG SAMPLE SITE LEFT RADIAL; BG TIDAL VOLUME(mL) 450.0 mL; BG TOTAL HEMOGLOBIN 8.2 g/dL (13.5-17.5); BG VENT MODE VENT - PRVC; BG VENT RATE 26.0 set
[2025-03-25 12:07] LABS: INR 1.1
[2025-03-25] MEDS ORDERED: FENTANYL CITRATE/PF 2,500 MCG in SODIUM CHLORIDE 0.9% 200 ML IV PRN (15:00)
[2025-03-25] MEDS: FENTANYL 2500MCG/250ML PMX 250 ML IV PRN (15:14)
[2025-03-25 20:14] LABS: BAND% 3.0 % (1.0-6.0); LYMPHOCYTES % MANUAL 7.0 % (20.0-50.0); MONOCYTES % MANUAL 6.0 % (2.0-8.0); NEUTROPHILS % MANUAL 84.0 % (45.0-75.0); PLATELET ESTIMATE NORMAL
[2025-03-25] MEDS ORDERED: TOTAL PARENTERAL NUTRITION 2,000 ML IV SCH (21:00)
[2025-03-26] VITALS (101 sets, daily range): BP systolic 114–164; BP diastolic 69–90; PULSE 60–84; RESP 13–29; TEMP 36.4–36.8; O2SAT 94–100
[2025-03-26] MEDS: INSULIN GLARGINE 100 UNITS/ML SUBCUT SCH (00:05)
[2025-03-26 05:06] LABS: HEMATOCRIT. 23.0 % (42.0-52.0); HEMOGLOBIN. 7.4 g/dL (14.0-18.0); MEAN PLATELET VOLUME 8.2 fl (7.4-10.4); RED BLOOD CELL COUNT 2.69 mill/uL (4.7-6.1); RED CELL DISTRIBUTION WIDTH 16.4 % (11.6-14.6)
[2025-03-26 05:13] LABS: CREATININE 3.9 mg/dL (0.6-1.3)
[2025-03-26 05:14] LABS: UREA NITROGEN BLOOD 69 mg/dL (9-23)
[2025-03-26 05:16] LABS: PHOSPHORUS 3.0 mg/dL (2.5-4.9)
[2025-03-26 07:35] LABS: BAND% 10.0 % (1.0-6.0); LYMPHOCYTES % MANUAL 9.0 % (20.0-50.0); METAMYELOCYTES % 1.0 % (0-0); MONOCYTES % MANUAL 4.0 % (2.0-8.0); NEUTROPHILS % MANUAL 76.0 % (45.0-75.0)
[2025-03-26 07:39] LABS: PLATELET ESTIMATE NORMAL
[2025-03-26 07:41] LABS: PLATELET 255 x1000/uL (130-400)
[2025-03-26 09:05] LABS: BG BASE EXCESS -2.3 mmol/L (-2.0-3.0); BG CARBOXYHEMOGLOBIN 0.9 % (0.5-1.5); BG DEOXYHEMOGLOBIN 6.1 % (0.0-5.0); BG FRACTION INSPIRED OXYGEN 60; BG HCO3 ACT 23.4 mmol/L (21.0-28.0); BG METHEMOGLOBIN 0.3 % (0.5-1.5); BG OXYGEN SATURATION 93.8 % (94.0-98.0); BG OXYHEMOGLOBIN 92.7 % (94.0-98.0); BG PCO2 44.2 mmHg (35.0-48.0); BG PEEP (cmH2O) 5.0 cmH2O; BG PH 7.342 (7.350-7.450); BG PO2 70.8 mmHg (83.0-108.0); BG SAMPLE SITE RIGHT RADIAL; BG TIDAL VOLUME(mL) 450.0 mL; BG TOTAL HEMOGLOBIN 9.2 g/dL (13.5-17.5); BG VENT MODE VENT - PRVC; BG VENT RATE 26.0 set
[2025-03-27] VITALS (108 sets, daily range): BP systolic 112–148; BP diastolic 62–99; PULSE 58–79; RESP 14–34; TEMP 35.8362–36.9; O2SAT 95–100
[2025-03-27 06:57] LABS: CREATININE 4.2 mg/dL (0.6-1.3); UREA NITROGEN BLOOD 74 mg/dL (9-23)
[2025-03-27 06:59] LABS: PHOSPHORUS 4.1 mg/dL (2.5-4.9)
[2025-03-27 09:17] LABS: BG BASE EXCESS -4.2 mmol/L (-2.0-3.0); BG CARBOXYHEMOGLOBIN 0.3 % (0.5-1.5); BG DEOXYHEMOGLOBIN 6.8 % (0.0-5.0); BG FRACTION INSPIRED OXYGEN 60; BG HCO3 ACT 20.9 mmol/L (21.0-28.0); BG METHEMOGLOBIN 0.1 % (0.5-1.5); BG OXYGEN SATURATION 93.2 % (94.0-98.0); BG OXYHEMOGLOBIN 92.8 % (94.0-98.0); BG PCO2 38.2 mmHg (35.0-48.0); BG PEEP (cmH2O) 14.0 cmH2O; BG PH 7.356 (7.350-7.450); BG PO2 71.8 mmHg (83.0-108.0); BG SAMPLE SITE RIGHT BRACHIAL; BG TIDAL VOLUME(mL) 450.0 mL; BG TOTAL HEMOGLOBIN 8.0 g/dL (13.5-17.5); BG VENT MODE VENT - PRVC; BG VENT RATE 26.0 set
[2025-03-27 10:11] LABS: HEMATOCRIT. 25.4 % (42.0-52.0); HEMOGLOBIN. 8.3 g/dL (14.0-18.0); MEAN PLATELET VOLUME 8.9 fl (7.4-10.4); PLATELET 303 x1000/uL (130-400); RED BLOOD CELL COUNT 2.98 mill/uL (4.7-6.1); RED CELL DISTRIBUTION WIDTH 16.3 % (11.6-14.6)
[2025-03-27 10:36] LABS: BAND% 16.0 % (1.0-6.0); LYMPHOCYTES % MANUAL 15.0 % (20.0-50.0); MONOCYTES % MANUAL 7.0 % (2.0-8.0); NEUTROPHILS % MANUAL 62.0 % (45.0-75.0); PLATELET ESTIMATE NORMAL
[2025-03-27 11:22] LABS: INR 1.2
[2025-03-27] MEDS: MIDAZOLAM 100MG/100ML PMX 100 ML IV PRN (17:20)
[2025-03-27] MEDS: ACETAMINOPHEN 325MG TABLET PO PRN (21:19)
[2025-03-27] MEDS: TOTAL PARENTERAL NUTRITION 2,000 ML IV SCH (21:40)
[2025-03-28] VITALS (76 sets, daily range): BP systolic 86–161; BP diastolic 40–114; PULSE 57–85; RESP 12–33; TEMP 36.2–36.8; O2SAT 90–100
[2025-03-28 07:31] LABS: HEMATOCRIT. 26.9 % (42.0-52.0); HEMOGLOBIN. 8.6 g/dL (14.0-18.0); MEAN PLATELET VOLUME 8.3 fl (7.4-10.4); PLATELET 215 x1000/uL (130-400); RED BLOOD CELL COUNT 3.17 mill/uL (4.7-6.1); RED CELL DISTRIBUTION WIDTH 16.5 % (11.6-14.6)
[2025-03-28 07:44] LABS: CREATININE 3.8 mg/dL (0.6-1.3); UREA NITROGEN BLOOD 76 mg/dL (9-23)
[2025-03-28 07:46] LABS: PHOSPHORUS 3.3 mg/dL (2.5-4.9)
[2025-03-28 09:39] LABS: BG BASE EXCESS -5.0 mmol/L (-2.0-3.0); BG CARBOXYHEMOGLOBIN 0.3 % (0.5-1.5); BG DEOXYHEMOGLOBIN 15.1 % (0.0-5.0); BG FRACTION INSPIRED OXYGEN 45; BG HCO3 ACT 20.0 mmol/L (21.0-28.0); BG METHEMOGLOBIN 0.3 % (0.5-1.5); BG OXYGEN SATURATION 84.8 % (94.0-98.0); BG OXYHEMOGLOBIN 84.3 % (94.0-98.0); BG PCO2 36.6 mmHg (35.0-48.0); BG PEEP (cmH2O) 14.0 cmH2O; BG PH 7.355 (7.350-7.450); BG PO2 52.8 mmHg (83.0-108.0); BG SAMPLE SITE RIGHT BRACHIAL; BG TIDAL VOLUME(mL) 450.0 mL; BG TOTAL HEMOGLOBIN 9.6 g/dL (13.5-17.5); BG VENT MODE VENT - PRVC; BG VENT RATE 26.0 set
[2025-03-28 12:53] LABS: BAND% 9.0 % (1.0-6.0); LYMPHOCYTES % MANUAL 5.0 % (20.0-50.0); MONOCYTES % MANUAL 5.0 % (2.0-8.0); NEUTROPHILS % MANUAL 81.0 % (45.0-75.0); PLATELET ESTIMATE NORMAL
[2025-03-28 13:10] LABS: BG BASE EXCESS -4.0 mmol/L (-2.0-3.0); BG CARBOXYHEMOGLOBIN 0.1 % (0.5-1.5); BG DEOXYHEMOGLOBIN 5.6 % (0.0-5.0); BG FRACTION INSPIRED OXYGEN 60; BG HCO3 ACT 21.3 mmol/L (21.0-28.0); BG METHEMOGLOBIN 0.3 % (0.5-1.5); BG OXYGEN SATURATION 94.4 % (94.0-98.0); BG OXYHEMOGLOBIN 94.0 % (94.0-98.0); BG PCO2 39.3 mmHg (35.0-48.0); BG PEEP (cmH2O) 14.0 cmH2O; BG PH 7.351 (7.350-7.450); BG PO2 76.2 mmHg (83.0-108.0); BG SAMPLE SITE RIGHT BRACHIAL; BG TIDAL VOLUME(mL) 450.0 mL; BG TOTAL HEMOGLOBIN 9.9 g/dL (13.5-17.5); BG VENT MODE VENT - PRVC; BG VENT RATE 24.0 set
[2025-03-28] MEDS: IPRATROPIUM/ALBUTEROL 0.5-3(2.5)MG/3ML NEB HHN SCH (20:31)
[2025-03-28] MEDS: INSULIN GLARGINE 100 UNITS/ML SUBCUT SCH (22:09)
[2025-03-29] VITALS (63 sets, daily range): BP systolic 98–149; BP diastolic 28–92; PULSE 65–111; RESP 10–41; TEMP 35.9–36.6; O2SAT 90–100
[2025-03-29 06:32] LABS: HEMATOCRIT. 25.5 % (42.0-52.0); HEMOGLOBIN. 8.1 g/dL (14.0-18.0); MEAN PLATELET VOLUME 8.2 fl (7.4-10.4); PLATELET 210 x1000/uL (130-400); RED BLOOD CELL COUNT 2.98 mill/uL (4.7-6.1); RED CELL DISTRIBUTION WIDTH 16.2 % (11.6-14.6)
[2025-03-29 06:53] LABS: CREATININE 4.1 mg/dL (0.6-1.3)
[2025-03-29 06:54] LABS: UREA NITROGEN BLOOD 84 mg/dL (9-23)
[2025-03-29 06:56] LABS: PHOSPHORUS 3.2 mg/dL (2.5-4.9)
[2025-03-29 08:33] LABS: BG BASE EXCESS -5.1 mmol/L (-2.0-3.0); BG CARBOXYHEMOGLOBIN 0.3 % (0.5-1.5); BG DEOXYHEMOGLOBIN 9.8 % (0.0-5.0); BG FRACTION INSPIRED OXYGEN 60; BG HCO3 ACT 20.0 mmol/L (21.0-28.0); BG METHEMOGLOBIN 0.3 % (0.5-1.5); BG OXYGEN SATURATION 90.1 % (94.0-98.0); BG OXYHEMOGLOBIN 89.6 % (94.0-98.0); BG PCO2 37.1 mmHg (35.0-48.0); BG PEEP (cmH2O) 14.0 cmH2O; BG PH 7.350 (7.350-7.450); BG PO2 61.0 mmHg (83.0-108.0); BG SAMPLE SITE RIGHT RADIAL; BG TIDAL VOLUME(mL) 450.0 mL; BG TOTAL HEMOGLOBIN 8.5 g/dL (13.5-17.5); BG TOTAL RESPIRATORY RATE 42 b/min; BG VENT MODE VENT - PRVC; BG VENT RATE 24.0 set
[2025-03-29 09:41] LABS: BAND% 31.0 % (1.0-6.0); EOSINOPHILS % MANUAL 1.0 % (0.0-5.0); LYMPHOCYTES % MANUAL 5.0 % (20.0-50.0); MONOCYTES % MANUAL 2.0 % (2.0-8.0); NEUTROPHILS % MANUAL 61.0 % (45.0-75.0); PLATELET ESTIMATE NORMAL
[2025-03-29 15:35] LABS: BG BASE EXCESS -5.1 mmol/L (-2.0-3.0); BG CARBOXYHEMOGLOBIN 0.8 % (0.5-1.5); BG DEOXYHEMOGLOBIN 7.4 % (0.0-5.0); BG FRACTION INSPIRED OXYGEN 80; BG HCO3 ACT 20.4 mmol/L (21.0-28.0); BG METHEMOGLOBIN 0.3 % (0.5-1.5); BG OXYGEN SATURATION 92.5 % (94.0-98.0); BG OXYHEMOGLOBIN 91.5 % (94.0-98.0); BG PCO2 39.4 mmHg (35.0-48.0); BG PEEP (cmH2O) 14.0 cmH2O; BG PH 7.331 (7.350-7.450); BG PO2 68.7 mmHg (83.0-108.0); BG SAMPLE SITE RIGHT RADIAL; BG TIDAL VOLUME(mL) 450.0 mL; BG TOTAL HEMOGLOBIN 9.0 g/dL (13.5-17.5); BG TOTAL RESPIRATORY RATE 40 b/min; BG VENT MODE VENT - PRVC; BG VENT RATE 24.0 set
[2025-03-29] MEDS: METOPROLOL TARTRATE 50MG TABLET NG SCH (16:54)
[2025-03-29] MEDS: FENTANYL CITRATE 2,500 MCG in SODIUM CHLORIDE 0.9% 200 ML IV PRN (21:09)
[2025-03-29] MEDS: METOPROLOL TARTRATE 25MG TABLET NG SCH (21:14)
[2025-03-29] MEDS: DEXTROSE 50% WATER 50ML SYRINGE IV PRN (22:38)
[2025-03-30] VITALS (110 sets, daily range): BP systolic 86–238; BP diastolic 33–116; PULSE 74–131; RESP 0–39; TEMP 36.6696–37.2; O2SAT 81–99
[2025-03-30] MEDS: DEXMEDETOMIDINE 100 ML IV PRN (01:00)
[2025-03-30 07:29] LABS: HEMATOCRIT. 24.5 % (42.0-52.0); HEMOGLOBIN. 7.6 g/dL (14.0-18.0); MEAN PLATELET VOLUME 8.2 fl (7.4-10.4); PLATELET 178 x1000/uL (130-400); RED BLOOD CELL COUNT 2.82 mill/uL (4.7-6.1); RED CELL DISTRIBUTION WIDTH 16.3 % (11.6-14.6)
[2025-03-30 07:45] LABS: CREATININE 4.6 mg/dL (0.6-1.3)
[2025-03-30 07:46] LABS: UREA NITROGEN BLOOD 98 mg/dL (9-23)
[2025-03-30 07:48] LABS: PHOSPHORUS 3.5 mg/dL (2.5-4.9)
[2025-03-30 18:06] LABS: LYMPHOCYTES % MANUAL 6.0 % (20.0-50.0); MONOCYTES % MANUAL 5.0 % (2.0-8.0); NEUTROPHILS % MANUAL 89.0 % (45.0-75.0); PLATELET ESTIMATE NORMAL
[2025-03-30 21:08] LABS: BG BASE EXCESS 0.5 mmol/L (-2.0-3.0); BG CARBOXYHEMOGLOBIN 1.0 % (0.5-1.5); BG DEOXYHEMOGLOBIN 40.0 % (0.0-5.0); BG FRACTION INSPIRED OXYGEN 100; BG HCO3 ACT 27.0 mmol/L (21.0-28.0); BG METHEMOGLOBIN 0.1 % (0.5-1.5); BG OXYGEN SATURATION 59.6 % (94.0-98.0); BG OXYHEMOGLOBIN 58.9 % (94.0-98.0); BG PCO2 52.8 mmHg (35.0-48.0); BG PH 7.326 (7.350-7.450); BG PO2 30.9 mmHg (83.0-108.0); BG SAMPLE SITE RIGHT RADIAL; BG TOTAL HEMOGLOBIN 10.0 g/dL (13.5-17.5)
[2025-03-30] MEDS: VECURONIUM BROMIDE 10 MG/VIAL IV SCH (21:50)
[2025-03-31] VITALS (114 sets, daily range): BP systolic 60–177; BP diastolic 34–105; PULSE 78–138; RESP 0–38; TEMP 36.89184–37.9; O2SAT 58–97
[2025-03-31 06:25] LABS: BASOPHILS % 0.1 % (0.0-2.0); EOSINOPHILS % 1.6 % (0.0-5.0); HEMATOCRIT. 22.3 % (42.0-52.0); HEMOGLOBIN. 7.1 g/dL (14.0-18.0); LYMPHOCYTES % 9.1 % (20.0-50.0); MEAN PLATELET VOLUME 7.9 fl (7.4-10.4); MONOCYTES % 6.7 % (2.0-8.0); NEUTROPHILS % 82.5 % (40.0-76.0); PLATELET 165 x1000/uL (130-400); RED BLOOD CELL COUNT 2.62 mill/uL (4.7-6.1); RED CELL DISTRIBUTION WIDTH 16.2 % (11.6-14.6)
[2025-03-31 06:55] LABS: CREATININE 3.7 mg/dL (0.6-1.3)
[2025-03-31 06:56] LABS: UREA NITROGEN BLOOD 69 mg/dL (9-23)
[2025-03-31 06:57] LABS: ASPARTATE AMINOTRANSFERASE 28 IU/L (<34)
[2025-03-31 06:58] LABS: BILIRUBIN TOTAL 0.2 mg/dL (0.1-1.0); PHOSPHORUS 2.7 mg/dL (2.5-4.9); PROTEIN TOTAL 5.3 g/dL (6.0-8.3)
[2025-03-31 09:36] LABS: BG BASE EXCESS 2.1 mmol/L (-2.0-3.0); BG CARBOXYHEMOGLOBIN 1.8 % (0.5-1.5); BG DEOXYHEMOGLOBIN 1.2 % (0.0-5.0); BG FRACTION INSPIRED OXYGEN 100; BG HCO3 ACT 26.8 mmol/L (21.0-28.0); BG METHEMOGLOBIN 0.3 % (0.5-1.5); BG OXYGEN SATURATION 98.8 % (94.0-98.0); BG OXYHEMOGLOBIN 96.7 % (94.0-98.0); BG PCO2 42.7 mmHg (35.0-48.0); BG PEEP (cmH2O) 18.0 cmH2O; BG PH 7.416 (7.350-7.450); BG PO2 122.4 mmHg (83.0-108.0); BG SAMPLE SITE RIGHT RADIAL; BG TIDAL VOLUME(mL) 500.0 mL; BG TOTAL HEMOGLOBIN 8.5 g/dL (13.5-17.5); BG VENT MODE VENT - PRVC; BG VENT RATE 30.0 set
[2025-03-31] MEDS: ACETAMINOPHEN 325MG TABLET PO PRN (11:53)
[2025-03-31] MEDS ORDERED: CEFEPIME 2GM IN DEXT 5% 100ML IV SCH (13:15)
[2025-03-31] MEDS: VECURONIUM BROMIDE 50 MG in DEXTROSE 5% WATER 50 ML IV PRN (14:04)
[2025-03-31] MEDS: ACETAMINOPHEN 325MG TABLET PO SCH (15:00)
[2025-03-31] MEDS: CEFEPIME 1GM PREMIX 50ML IV SCH (16:02)
[2025-03-31] MEDS: LINEZOLID 600 MG IV SCH (17:08)
[2025-03-31] MEDS: NOREPINEPHRINE 8MG/250ML PMX 250 ML IV PRN (17:08)
[2025-03-31 21:32] LABS: BG BASE EXCESS -3.9 mmol/L (-2.0-3.0); BG CARBOXYHEMOGLOBIN 0.6 % (0.5-1.5); BG DEOXYHEMOGLOBIN 28.8 % (0.0-5.0); BG FRACTION INSPIRED OXYGEN 100; BG HCO3 ACT 22.8 mmol/L (21.0-28.0); BG METHEMOGLOBIN 0.1 % (0.5-1.5); BG OXYGEN SATURATION 71.0 % (94.0-98.0); BG OXYHEMOGLOBIN 70.5 % (94.0-98.0); BG PCO2 49.7 mmHg (35.0-48.0); BG PEEP (cmH2O) 18.0 cmH2O; BG PH 7.279 (7.350-7.450); BG PO2 40.7 mmHg (83.0-108.0); BG SAMPLE SITE RIGHT RADIAL; BG TIDAL VOLUME(mL) 500.0 mL; BG TOTAL HEMOGLOBIN 8.3 g/dL (13.5-17.5); BG VENT MODE PRVC; BG VENT RATE 30.0 set
[2025-04-01] VITALS (126 sets, daily range): BP systolic 49–206; BP diastolic 20–111; PULSE 50–155; RESP 0–31; TEMP 35.8–37.4; O2SAT 55–93
[2025-04-01] MEDS: METHYLPREDNISOLONE SOD SUCC 125MG/2ML (ACT-O-VIAL) IV SCH (02:23)
[2025-04-01] MEDS: PROPOFOL 10MG/ML 100ML 100 ML IV PRN (02:42)
[2025-04-01 07:12] LABS: BASOPHILS % 0.3 % (0.0-2.0); EOSINOPHILS % 0.5 % (0.0-5.0); HEMATOCRIT. 23.6 % (42.0-52.0); HEMOGLOBIN. 7.2 g/dL (14.0-18.0); LYMPHOCYTES % 8.7 % (20.0-50.0); MEAN PLATELET VOLUME 8.8 fl (7.4-10.4); MONOCYTES % 7.0 % (2.0-8.0); NEUTROPHILS % 83.5 % (40.0-76.0); PLATELET 264 x1000/uL (130-400); RED BLOOD CELL COUNT 2.72 mill/uL (4.7-6.1); RED CELL DISTRIBUTION WIDTH 16.8 % (11.6-14.6)
[2025-04-01 07:26] LABS: CREATININE 4.3 mg/dL (0.6-1.3)
[2025-04-01 07:27] LABS: UREA NITROGEN BLOOD 91 mg/dL (9-23)
[2025-04-01 07:29] LABS: PHOSPHORUS 4.9 mg/dL (2.5-4.9)
[2025-04-01 09:23] LABS: BG BASE EXCESS -8.8 mmol/L (-2.0-3.0); BG CARBOXYHEMOGLOBIN 1.3 % (0.5-1.5); BG DEOXYHEMOGLOBIN 50.4 % (0.0-5.0); BG FRACTION INSPIRED OXYGEN 100; BG HCO3 ACT 18.3 mmol/L (21.0-28.0); BG METHEMOGLOBIN 0.1 % (0.5-1.5); BG OXYGEN SATURATION 48.9 % (94.0-98.0); BG OXYHEMOGLOBIN 48.2 % (94.0-98.0); BG PCO2 45.9 mmHg (35.0-48.0); BG PEEP (cmH2O) 18.0 cmH2O; BG PH 7.218 (7.350-7.450); BG PO2 29.6 mmHg (83.0-108.0); BG SAMPLE SITE RIGHT BRACHIAL; BG TIDAL VOLUME(mL) 500.0 mL; BG TOTAL HEMOGLOBIN 7.5 g/dL (13.5-17.5); BG VENT MODE VENT - PRVC; BG VENT RATE 30.0 set
[2025-04-01] MEDS ORDERED: EPINEPHRINE 5 MG in SODIUM CHLORIDE 0.9% 245 ML IV PRN (16:30)
[2025-04-01] MEDS ORDERED: PHENYLEPHRINE 50MG/250ML PMX 250 ML IV PRN (16:30)
[2025-04-01] MEDS: PHENYLEPHRINE 50 MG in DEXTROSE 5% WATER 250 ML IV PRN (17:22)
[2025-04-01] MEDS: VASOPRESSIN 20 UNIT in SODIUM CHLORIDE 0.9% 99 ML IV PRN (18:48)
[2025-04-01] MEDS ORDERED: NOREPINEPHRINE 8 MG in DEXT 5% WATER 242 ML IV PRN (20:00)
[2025-04-01] MEDS: PHENYLEPHRINE 100 MG in DEXT 5% WATER 240 ML IV PRN (21:03)
[2025-04-02] VITALS (51 sets, daily range): BP systolic 31–122; BP diastolic 13–60; PULSE 47–160; RESP 0–30; TEMP 36.3; O2SAT 52–88
[2025-04-02 04:55] LABS: BASOPHILS % 0.5 % (0.0-2.0); EOSINOPHILS % 1.4 % (0.0-5.0); HEMATOCRIT. 25.9 % (42.0-52.0); HEMOGLOBIN. 7.6 g/dL (14.0-18.0); LYMPHOCYTES % 11.0 % (20.0-50.0); MEAN PLATELET VOLUME 9.1 fl (7.4-10.4); MONOCYTES % 6.2 % (2.0-8.0); NEUTROPHILS % 80.9 % (40.0-76.0); PLATELET 234 x1000/uL (130-400); RED BLOOD CELL COUNT 2.77 mill/uL (4.7-6.1); RED CELL DISTRIBUTION WIDTH 17.8 % (11.6-14.6)
[2025-04-02 08:46] LABS: BG BASE EXCESS -18.4 mmol/L (-2.0-3.0); BG CARBOXYHEMOGLOBIN 0.3 % (0.5-1.5); BG DEOXYHEMOGLOBIN 32.8 % (0.0-5.0); BG FRACTION INSPIRED OXYGEN 100; BG HCO3 ACT 12.1 mmol/L (21.0-28.0); BG METHEMOGLOBIN 0.3 % (0.5-1.5); BG OXYGEN SATURATION 67.0 % (94.0-98.0); BG OXYHEMOGLOBIN 66.6 % (94.0-98.0); BG PCO2 53.1 mmHg (35.0-48.0); BG PEEP (cmH2O) 18.0 cmH2O; BG PH 6.975 (7.350-7.450); BG PO2 47.1 mmHg (83.0-108.0); BG SAMPLE SITE RIGHT RADIAL; BG TIDAL VOLUME(mL) 500.0 mL; BG TOTAL HEMOGLOBIN 7.6 g/dL (13.5-17.5); BG VENT MODE VENT - PRVC; BG VENT RATE 30.0 set
[2025-04-02] MEDS ORDERED: AMIODARONE 150MG/100ML D5W 100 ML IV NR (09:00)
[2025-04-02] MEDS ORDERED: NOREPINEPHRINE 32 MG in DEXT 5% WATER 218 ML IV PRN (09:00)
[2025-04-02] MEDS ORDERED: AMIODARONE HCL 900 MG in DEXT 5% WATER 482 ML IV SCH (10:00)
[2025-04-02 13:40] LABS: CREATININE 4.7 mg/dL (0.6-1.3); TRIGLYCERIDE 118 mg/dL (0-150); UREA NITROGEN BLOOD 85 mg/dL (9-23)
[2025-04-02 13:42] LABS: PHOSPHORUS 6.8 mg/dL (2.5-4.9)
== END 2025-04-02 09:56 | DRG 720 ==
LOC: ER 11:24 → EDBEDREQSVC 13:30 → CVICU 15:44 → EDBEDREQ 15:57 → ENRESERV 16:15
PROVIDERS: ADMIT Internal Medicine; ATTEND Internal Medicine
PROC: 5A1955Z Respiratory Ventilation, Greater than 96 Consecutive Hours (ICD-10-PCS; principal; 2025-03-02)
PROC: 0BH17EZ Insertion of Endotracheal Airway into Trachea, Via Natural or Artificial Opening (ICD-10-PCS; 2025-03-02)
PROC: 5A09357 Assistance with Respiratory Ventilation, Less than 24 Consecutive Hours, Continuous Positive Airway Pressure (ICD-10-PCS; 2025-03-02)
PROC: 5A1D70Z Performance of Urinary Filtration, Intermittent, Less than 6 Hours Per Day (ICD-10-PCS; 2025-03-03)
PROC: 02HV33Z Insertion of Infusion Device into Superior Vena Cava, Percutaneous Approach (ICD-10-PCS; 2025-03-03)
PROC: B548ZZA Ultrasonography of Superior Vena Cava, Guidance (ICD-10-PCS; 2025-03-03)
PROC: B5181ZA Fluoroscopy of Superior Vena Cava using Low Osmolar Contrast, Guidance (ICD-10-PCS; 2025-03-03)
PROC: 5A1D70Z Performance of Urinary Filtration, Intermittent, Less than 6 Hours Per Day (ICD-10-PCS; 2025-03-04)
PROC: 5A1D70Z Performance of Urinary Filtration, Intermittent, Less than 6 Hours Per Day (ICD-10-PCS; 2025-03-05)
PROC: 5A1D70Z Performance of Urinary Filtration, Intermittent, Less than 6 Hours Per Day (ICD-10-PCS; 2025-03-06)
PROC: 5A1D70Z Performance of Urinary Filtration, Intermittent, Less than 6 Hours Per Day (ICD-10-PCS; 2025-03-07)
PROC: 5A1D70Z Performance of Urinary Filtration, Intermittent, Less than 6 Hours Per Day (ICD-10-PCS; 2025-03-09)
PROC: 5A1D70Z Performance of Urinary Filtration, Intermittent, Less than 6 Hours Per Day (ICD-10-PCS; 2025-03-10)
PROC: 5A1D70Z Performance of Urinary Filtration, Intermittent, Less than 6 Hours Per Day (ICD-10-PCS; 2025-03-11)
PROC: 5A1D70Z Performance of Urinary Filtration, Intermittent, Less than 6 Hours Per Day (ICD-10-PCS; 2025-03-14)
PROC: 5A1D70Z Performance of Urinary Filtration, Intermittent, Less than 6 Hours Per Day (ICD-10-PCS; 2025-03-16)
PROC: 5A1D70Z Performance of Urinary Filtration, Intermittent, Less than 6 Hours Per Day (ICD-10-PCS; 2025-03-18)
PROC: 5A1D70Z Performance of Urinary Filtration, Intermittent, Less than 6 Hours Per Day (ICD-10-PCS; 2025-03-20)
PROC: 5A1D70Z Performance of Urinary Filtration, Intermittent, Less than 6 Hours Per Day (ICD-10-PCS; 2025-03-22)
PROC: 5A1D70Z Performance of Urinary Filtration, Intermittent, Less than 6 Hours Per Day (ICD-10-PCS; 2025-03-24)
PROC: 5A1D70Z Performance of Urinary Filtration, Intermittent, Less than 6 Hours Per Day (ICD-10-PCS; 2025-03-25)
PROC: 5A1D70Z Performance of Urinary Filtration, Intermittent, Less than 6 Hours Per Day (ICD-10-PCS; 2025-03-27)
PROC: 5A1D70Z Performance of Urinary Filtration, Intermittent, Less than 6 Hours Per Day (ICD-10-PCS; 2025-03-28)
PROC: 5A1D70Z Performance of Urinary Filtration, Intermittent, Less than 6 Hours Per Day (ICD-10-PCS; 2025-03-30)
PROC: 5A1D70Z Performance of Urinary Filtration, Intermittent, Less than 6 Hours Per Day (ICD-10-PCS; 2025-03-31)
PROC: 0BH17EZ Insertion of Endotracheal Airway into Trachea, Via Natural or Artificial Opening (ICD-10-PCS; 2025-03-31)
PROC: 5A1945Z Respiratory Ventilation, 24-96 Consecutive Hours (ICD-10-PCS; 2025-03-31)
PROC: 5A1D70Z Performance of Urinary Filtration, Intermittent, Less than 6 Hours Per Day (ICD-10-PCS; 2025-04-02)
PROC: 5A12012 Performance of Cardiac Output, Single, Manual (ICD-10-PCS; 2025-04-02)
DX: A41.9 Sepsis, unspecified organism (principal); J80 Acute respiratory distress syndrome; R65.21 Severe sepsis with septic shock; I13.2 Hypertensive heart and chronic kidney disease with heart failure and with stage 5 chronic kidney disease, or end stage renal disease; L89.153 Pressure ulcer of sacral region, stage 3; J69.0 Pneumonitis due to inhalation of food and vomit; E87.20 Acidosis, unspecified; G92.9 Unspecified toxic encephalopathy; N18.6 End stage renal disease; J18.9 Pneumonia, unspecified organism; J44.0 Chronic obstructive pulmonary disease with (acute) lower respiratory infection; Z99.2 Dependence on renal dialysis; N17.9 Acute kidney failure, unspecified; I27.29 Other secondary pulmonary hypertension; E10.22 Type 1 diabetes mellitus with diabetic chronic kidney disease; D50.9 Iron deficiency anemia, unspecified; K76.0 Fatty (change of) liver, not elsewhere classified; E66.2 Morbid (severe) obesity with alveolar hypoventilation; I50.21 Acute systolic (congestive) heart failure; E83.39 Other disorders of phosphorus metabolism; N18.9 Chronic kidney disease, unspecified; E83.51 Hypocalcemia; E87.5 Hyperkalemia; E10.65 Type 1 diabetes mellitus with hyperglycemia; E10.621 Type 1 diabetes mellitus with foot ulcer; L97.519 Non-pressure chronic ulcer of other part of right foot with unspecified severity; I50.82 Biventricular heart failure; I89.0 Lymphedema, not elsewhere classified; E10.622 Type 1 diabetes mellitus with other skin ulcer; E78.5 Hyperlipidemia, unspecified; E83.41 Hypermagnesemia; E87.1 Hypo-osmolality and hyponatremia; I15.8 Other secondary hypertension; I16.0 Hypertensive urgency; I21.A1 Myocardial infarction type 2; I49.3 Ventricular premature depolarization; M14.671 Charcot's joint, right ankle and foot; R15.9 Full incontinence of feces; S10.91XA Abrasion of unspecified part of neck, initial encounter; X58.XXXA Exposure to other specified factors, initial encounter; S40.822A Blister (nonthermal) of left upper arm, initial encounter; E78.1 Pure hyperglyceridemia; R16.0 Hepatomegaly, not elsewhere classified; E87.6 Hypokalemia; R74.01 Elevation of levels of liver transaminase levels; R33.9 Retention of urine, unspecified; Z79.4 Long term (current) use of insulin; Z88.2 Allergy status to sulfonamides; Z88.1 Allergy status to other antibiotic agents; Z98.84 Bariatric surgery status; Y93.89 Activity, other specified; Y92.89 Other specified places as the place of occurrence of the external cause; Y99.8 Other external cause status; Z79.84 Long term (current) use of oral hypoglycemic drugs; Z68.45 Body mass index [BMI] 70 or greater, adult
CPT/HCPCS: 31500; 31720; 36415; 36556; 36600; 71045; 76604; 76700; 76705; 76770; 77001; 78227; 80048; 80051; 80053; 80061; 80076; 80305; 80320; 81003; 82010; 82043; 82306; 82330; 82375; 82550; 82570; 82607; 82728; 82746; 82805; 82962; 83036; 83519; 83520; 83540; 83550; 83605; 83721; 83735; 83880; 83930; 83970; 84100; 84132; 84134; 84145; 84439; 84443; 84478; 84484; 84681; 85014; 85018; 85025; 85027; 85379; 86038; 86160; 86256; 86705; 86709; 86850; 86900; 86920; 87070; 87077; 87186; 87340; 90935; 93005; 93306; 93970; 94002; 94003; 94070; 94640; 94660; 94664; 94760; 96361; 96374; 96375; 98960; 99291; A4606; A9537; C1752; J0282; J0360; J0456; J0612; J0692; J1644; J1650; J1815; J1938; J2003; J2020; J2250; J2270; J2371; J2405; J2470; J2543; J2704; J2765; J2919; J3010; J3373; J3430; J3480; J3490; J7030; J7050; J7060; Q9963; G0480